=== PATIENT | male | born 1980 | race Caucasian/White ===

== ENCOUNTER 2020-06-13 14:02 | Outpatient (REF) | payer OTHER, SELFPAY ==
--- NOTE | 2020-06-13 14:06 | XR_ITS ---
EXAMINATION: XR RIBS, RIGHT CLINICAL INFORMATION: Pleurodynia COMPARISON: Chest x-ray of September 02, 2019 TECHNIQUE: PA chest and three-view right ribs FINDINGS: There is no evidence of acute parenchymal disease, pneumothorax, or pleural effusion. Heart normal size. No evidence of pulmonary edema. Views of the right ribs do not demonstrate any abnormal destructive bony lesion. No acute displaced rib fracture identified. No pleural thickening seen. XR/XR ribs RT min 3V w CXR1V IMPRESSION: No acute parenchymal disease. No destructive bony lesion or displaced fracture of the right ribs.
== END 2020-06-13 14:03 | disposition home or self-care (01) ==
LOC: HO.HMGCX 14:02
PROVIDERS: PCP Family Medicine; Visit Provider Hospitalist
DX: R07.81 Pleurodynia (principal)
CPT/HCPCS: 71101

== ENCOUNTER → 2021-03-03 13:37 | Outpatient (BNVA) | payer OTHER, SELFPAY | PROVIDERS: Visit Provider Internal Medicine | DX: F11.99 Opioid use, unspecified with unspecified opioid-induced disorder (principal); F17.200 Nicotine dependence, unspecified, uncomplicated; Z51.81 Encounter for therapeutic drug level monitoring | CPT/HCPCS: 80305; 99202 ==

== ENCOUNTER → 2021-03-10 15:51 | Outpatient (BNVA) | payer OTHER, SELFPAY | PROVIDERS: Visit Provider Internal Medicine | DX: F11.20 Opioid dependence, uncomplicated (principal); Z51.81 Encounter for therapeutic drug level monitoring; Z79.899 Other long term (current) drug therapy | CPT/HCPCS: 80305; 99212 ==

== ENCOUNTER → 2021-03-27 16:59 | Outpatient (BNVA) | payer OTHER, SELFPAY | PROVIDERS: Visit Provider Internal Medicine | DX: Z51.81 Encounter for therapeutic drug level monitoring (principal); F11.90 Opioid use, unspecified, uncomplicated | CPT/HCPCS: 80305; 99212 ==

== ENCOUNTER → 2021-04-24 15:49 | Outpatient (BNVA) | payer OTHER, SELFPAY | PROVIDERS: Visit Provider Internal Medicine | DX: F11.90 Opioid use, unspecified, uncomplicated (principal) | CPT/HCPCS: 80305; 99212 ==

== ENCOUNTER → 2021-05-22 15:30 | Outpatient (BNVA) | payer OTHER, SELFPAY | PROVIDERS: Visit Provider Internal Medicine | DX: F11.20 Opioid dependence, uncomplicated (principal); F17.200 Nicotine dependence, unspecified, uncomplicated; Z51.81 Encounter for therapeutic drug level monitoring; Z79.899 Other long term (current) drug therapy | CPT/HCPCS: 80305; 99212 ==

== ENCOUNTER → 2021-06-19 15:41 | Outpatient (BNVA) | payer OTHER, SELFPAY | PROVIDERS: Visit Provider Internal Medicine | DX: Z51.81 Encounter for therapeutic drug level monitoring (principal); F11.20 Opioid dependence, uncomplicated | CPT/HCPCS: 80305; 99211 ==

== ENCOUNTER → 2021-07-21 10:46 | Outpatient (BNVA) | payer OTHER, SELFPAY | PROVIDERS: Visit Provider Internal Medicine | DX: F11.20 Opioid dependence, uncomplicated (principal) | CPT/HCPCS: 80305; 99211 ==

== ENCOUNTER → 2021-08-18 12:59 | Outpatient (BNVA) | payer OTHER, SELFPAY | PROVIDERS: Visit Provider Internal Medicine | DX: F11.20 Opioid dependence, uncomplicated (principal) | CPT/HCPCS: 80305 ==

== ENCOUNTER → 2021-09-18 16:01 | Outpatient (BNVA) | payer OTHER, SELFPAY | PROVIDERS: Visit Provider Internal Medicine | DX: Z51.81 Encounter for therapeutic drug level monitoring (principal); F11.20 Opioid dependence, uncomplicated | CPT/HCPCS: 80305; 99212 ==

== ENCOUNTER → 2021-11-17 15:44 | Outpatient (BNVA) | payer OTHER, SELFPAY | PROVIDERS: Visit Provider Internal Medicine | DX: Z51.81 Encounter for therapeutic drug level monitoring (principal); F11.20 Opioid dependence, uncomplicated | CPT/HCPCS: 80305; 99212 ==

== ENCOUNTER → 2022-04-09 14:37 | Outpatient (BNVA) | payer OTHER, SELFPAY | PROVIDERS: Visit Provider Internal Medicine | DX: F11.20 Opioid dependence, uncomplicated (principal); Z51.81 Encounter for therapeutic drug level monitoring; Z79.899 Other long term (current) drug therapy | CPT/HCPCS: 99212 ==

== ENCOUNTER → 2022-06-04 15:41 | Outpatient (BNVA) | payer OTHER, SELFPAY | PROVIDERS: Visit Provider Internal Medicine | DX: F11.20 Opioid dependence, uncomplicated (principal) | CPT/HCPCS: 99212 ==

== ENCOUNTER → 2022-08-20 15:34 | Outpatient (BNVA) | payer OTHER, SELFPAY | PROVIDERS: PCP Family Medicine; Visit Provider Nurse Practitioner Psychiatric/Mental Health | DX: F11.20 Opioid dependence, uncomplicated (principal); F17.210 Nicotine dependence, cigarettes, uncomplicated; Z51.81 Encounter for therapeutic drug level monitoring; Z79.899 Other long term (current) drug therapy | CPT/HCPCS: 80305; 99212 ==

== ENCOUNTER → 2022-10-15 16:05 | Outpatient (BNVA) | payer OTHER, SELFPAY | PROVIDERS: PCP Family Medicine; Visit Provider Nurse Practitioner Psychiatric/Mental Health | DX: F11.20 Opioid dependence, uncomplicated (principal); Z72.0 Tobacco use; Z51.81 Encounter for therapeutic drug level monitoring; Z79.899 Other long term (current) drug therapy | CPT/HCPCS: 99212 ==

== ENCOUNTER 2023-02-01 15:34 | Outpatient (AMB) | payer SELFPAY ==
--- NOTE | 2023-02-01 15:35 | A.OFFVIS_ITS ---
Intake Vital Signs 02/01/23 15:43 BP 126/84 Blood Pressure Location Lt radial Position Sitting Pulse 74 Pulse Source Pulse Oximeter Pulse Oximetry (%) 98 Oxygen Delivery Method Room Air Intake Visit Reasons: MAT VISIT Intake Note: the patient presents for a mat visit Handhole Machine Operator Required: No Allergies morphine [MORPHINE] Allergy (Unknown, Verified 02/01/23 15:36) PALPITATIONS Do you need a note to return to daycare/school/sports/work: No HPI MAT VISIT HPI Details Patient presents for OUD treatment follow up Has not been seen in [facility] months Shared that he unexpectedly lost his sister in early November and as a result has been unable to miss anymore work (as 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 Has been taking suboxone consistently Strong family supports [facility] Medical History Opioid use disorder Tobacco use disorder Social History Alcohol intake: current Alcohol intake frequency: a few times a month Cigarette Packs Per Day: 1 Review of Systems Const Reports as per HPI and Reports no additional complaints Physical Exam Vital Signs: Last Vital Signs Pulse 74 02/01/23 15:43 BP 126/84 02/01/23 15:43 Pulse Ox 98 02/01/23 15:43 Oxygen Delivery Method Room Air 02/01/23 15:43 Const General: cooperative, healthy appearing, comfortable, no acute distress, well developed and alert Nutritional Appearance: well nourished Orientation/consciousness: patient oriented x3 Limitations: no limitations Neuro General: patient oriented x3 Psych Appearance: grossly normal Mental Status: mental status grossly normal Speech and movement: Normal speech and movement present Affect: normal affect Attitude: cooperative Thought process: Normal thought process present Thought content: Normal thought content present Insight: Good insight present (Psych) Judgement: Good judgement present (Psych) Results AMB 14 Panel Urine Drug Screen Urine Marijuana (THC) Positive Last Edit by Carmela Peacock CMA on 02/01/23 15:44 Urine Cocaine Negative Last Edit by Carmela Peacock CMA on 02/01/23 15:44 Urine Morphine Negative Last Edit by Carmela Peacock CMA on 02/01/23 15:44 Urine Methamphetamine Negative Last Edit by Carmela Peacock CMA on 02/01/23 15:44 Urine Amphetamine Negative Last Edit by Carmela Peacock CMA on 02/01/23 15:4 4 Urine Benzodiazepine Negative Last Edit by Carmela Peacock CMA on 02/01/23 15:44 Urine Barbiturates Negative Last Edit by Carmela Peacock CMA on 02/01/23 15: 44 Urine Methadone Negative Last Edit by Carmela Peacock CMA on 02/01/23 15:44 Urine Buprenorphine Positive Last Edit by Carmela Peacock CMA on 02/01/23 15 :44 Urine Tricyclic Antidepressant Negative Last Edit by Carmela Peacock CMA on 02/01/23 15:44 Urine MDMA Negative Last Edit by Carmela Peacock CMA on 02/01/23 15:44 Urine Oxycodone Negative Last Edit by Carmela Peacock CMA on 02/01/23 15:44 Urine Phencyclidine Negative Last Edit by Carmela Peacock CMA on 02/01/23 15 :44 Urine Propoxyphene Negative Last Edit by Carmela Peacock CMA on 02/01/23 15: 44 Results Reviewed Results Reviewed: Laboratory Last Values POC Urine Buprenorphine Positive 02/01/23 15:36 POC Urine Morphine Negative 02/01/23 15:36 POC Urine Oxycodone Negative 02/01/23 15:36 POC Urine Methadone Negative 02/01/23 15:36 POC Urine Propoxyphene Negative 02/01/23 15:36 POC Urine Barbiturates Negative 02/01/23 15:36 POC U Tricyclic Antidpr Negative 02/01/23 15:36 POC Urine PCP Negative 02/01/23 15:36 POC Ur Amphetamines Negative 02/01/23 15:36 POC Ur Methamphetamine Negative 02/01/23 15:36 POC Urine MDMA Negative 02/01/23 15:36 POC Ur Benzodiazepine Negative 02/01/23 15:36 POC Urine Cocaine Negative 02/01/23 15:36 POC Ur Marijuana (THC) Positive 02/01/23 15:36 Assessment & Plan Assessment & Plan (1) Opioid use disorder, moderate, in sustained remission: Code(s): F11.21 - Opioid dependence, in remission Plan: * Continue suboxone at current dose * follow up 8 weeks Orders: Orders AMB 14 Panel Urine Drug Screen 02/01/23 Z51.81 - Encounter for therapeutic drug level monitoring Medications: Changed From buprenorphine-naloxone 8-2 mg (Suboxone) place 1 strip/tab under (each) side of tongue 2 film sublingual DAILY 28 days 56 ea 1RF To buprenorphine-naloxone 8-2 mg (Suboxone) 2 film sublingual DAILY 30 ea 1RF Coding Level of Care Code Est Pt Level 3 (60848) Diagnoses Opioid use disorder, moderate, in sustained remission F11.21
[2023-02-01 15:43] VITALS: BP 126/84; PULSE 74; O2SAT 98
== END 2023-02-01 16:15 | disposition home or self-care (01) ==
LOC: HO.HCC 15:34
PROVIDERS: PCP Family Medicine; Visit Provider Nurse Practitioner Psychiatric/Mental Health
DX: F11.21 Opioid dependence, in remission (principal)
CPT/HCPCS: 99213

== ENCOUNTER → 2023-02-01 15:34 | Outpatient (BNVA) | payer OTHER, SELFPAY | PROVIDERS: PCP Family Medicine; Visit Provider Nurse Practitioner Psychiatric/Mental Health | DX: F11.21 Opioid dependence, in remission (principal); Z51.81 Encounter for therapeutic drug level monitoring; Z79.899 Other long term (current) drug therapy | CPT/HCPCS: 80305 ==

== ENCOUNTER 2023-06-28 15:49 | Outpatient (AMB) | payer OTHER, SELFPAY ==
[2023-06-28 15:52] VITALS: BP 140/85; PULSE 82; RESP 22; O2SAT 96
--- NOTE | 2023-06-28 15:52 | MHC.AM.SUB ---
Intake Vital Signs 06/28/23 15:52 BP 140/85 H Blood Pressure Location Lt brachial Respiration 22 H Pulse 82 Pulse Source Pulse Oximeter Pulse Oximetry (%) 96 Oxygen Delivery Method Room Air Intake Visit Reasons: MAT Visit Allergies morphine [MORPHINE] Allergy (Unknown, Verified 02/01/23 15:36) PALPITATIONS HPI MAT Visit HPI Details Patient presents for follow up Did not have insurance over the summer, so unable to be seen--however medication was still being sent to pharmacy and patient taking as prescribed [facility]. Still working FT No issues related to recovery [facility] Medical History Opioid use disorder Tobacco use disorder Social History Alcohol intake: current Alcohol intake frequency: a few times a month Cigarette Packs Per Day: 1 Review of Systems Const Reports as per HPI and Reports no additional complaints Physical Exam Vital Signs: Last Vital Signs Pulse 82 06/28/23 15:52 Resp 22 H 06/28/23 15:52 BP 140/85 H 06/28/23 15:52 Pulse Ox 96 06/28/23 15:52 Oxygen Delivery Method Room Air 06/28/23 15:52 Const General: cooperative, healthy appearing, comfortable, no acute distress, well developed and alert Nutritional Appearance: well nourished Orientation/consciousness: patient oriented x3 Limitations: no limitations Neuro General: patient oriented x3 Psych Appearance: grossly normal Mental Status: mental status grossly normal Speech and movement: Normal speech and movement present Affect: normal affect Attitude: cooperative Thought process: Normal thought process present Thought content: Normal thought content present Insight: Good insight present (Psych) Judgement: Good judgement present (Psych) Assessment & Plan Assessment & Plan (1) Opioid use disorder, moderate, in sustained remission: Code(s): F11.21 - Opioid dependence, in remission Plan: Continue suboxone at current dose follow up 8 weeks Medications: Refilled buprenorphine-naloxone 8-2 mg (Suboxone) 2 film sublingual DAILY 60 ea 1RF Coding Level of Care Code Est Pt Level 3 (70708) Diagnoses Opioid use disorder, moderate, in sustained remission F11.21
== END 2023-06-28 16:18 | disposition home or self-care (01) ==
PROVIDERS: PCP Family Medicine; Visit Provider Nurse Practitioner Psychiatric/Mental Health
DX: F11.21 Opioid dependence, in remission (principal)
CPT/HCPCS: 99213

== ENCOUNTER → 2023-06-28 15:49 | Outpatient (BNVA) | payer OTHER, SELFPAY | PROVIDERS: PCP Family Medicine; Visit Provider Nurse Practitioner Psychiatric/Mental Health ==

== ENCOUNTER 2023-08-26 11:03 | Outpatient (AMB) | payer OTHER, SELFPAY ==
--- NOTE | 2023-08-26 11:05 | A.OFFVISCC_ITS ---
Intake Vital Signs 08/26/23 11:09 BP 128/74 Blood Pressure Location Lt radial Position Sitting Pulse 85 Pulse Source Pulse Oximeter Pulse Oximetry (%) 96 Oxygen Delivery Method Room Air Intake Visit Reasons: mat visit Intake Note: the patient presents for a mat visit Educational Guidance Counselor Required: No Allergies morphine [MORPHINE] Allergy (Unknown, Verified 08/26/23 11:10) PALPITATIONS Do you need a note to return to daycare/school/sports/work: No HPI mat visit HPI Details Patient presents for MAT visit Reports he is moving into his new house within the next week Denies recovery concerns at this time, tolerating 16mg suboxone daily, denies side effects States he has previously had a CAT scan done and had abnormal findings ( white spots on lungs ) He reports when a repeat was done they had gotten worse (bigger and more of them) and now he needs to see a gear shaver set up operator States he has strong recovery supports (family) [facility] Medical History Opioid use disorder Tobacco use disorder Social History Alcohol intake: current Alcohol intake frequency: a few times a month Cigarette Packs Per Day: 1 Review of Systems Const Reports as per HPI Physical Exam Vital Signs: Last Vital Signs Pulse 85 08/26/23 11:09 BP 128/74 08/26/23 11:09 Pulse Ox 96 08/26/23 11:09 Oxygen Delivery Method Room Air 08/26/23 11:09 Const General: cooperative and no acute distress Resp Effort & Inspection: normal respiratory effort and able to speak in complete sentences Skin General skin exam: no rashes or lesions noted Psych Appearance: grossly normal Mental Status: mental status grossly normal Speech and movement: Normal speech and movement present Affect: normal affect Attitude: cooperative Assessment & Plan Assessment & Plan (1) Opioid use disorder, moderate, in sustained remission: Code(s): F11.21 - Opioid dependence, in remission Plan: -Mass pat reviewed -Continue suboxone current dose -Follow up 8 weeks Orders: Orders Comprehensive Met. Panel Today F11.21 - Opioid dependence, in remission Complete Blood Count Auto Diff Today F11.21 - Opioid dependence, in remission Medications: Refilled buprenorphine-naloxone 8-2 mg (Suboxone) 2 film sublingual DAILY 60 ea 1RF Coding Level of Care Code Est Pt Level 3 (76982) Diagnoses Opioid use disorder, moderate, in sustained remission F11.21
[2023-08-26 11:09] VITALS: BP 128/74; PULSE 85; O2SAT 96
== END 2023-08-26 11:22 | disposition home or self-care (01) ==
PROVIDERS: PCP Family Medicine; Visit Provider Nurse Practitioner Family
DX: F11.21 Opioid dependence, in remission (principal)
CPT/HCPCS: 99213

== ENCOUNTER → 2023-08-26 11:03 | Outpatient (BNVA) | payer OTHER, SELFPAY | PROVIDERS: PCP Family Medicine; Visit Provider Nurse Practitioner Family ==

== ENCOUNTER 2023-10-23 16:05 | Outpatient (AMB) | payer OTHER, SELFPAY ==
--- NOTE | 2023-10-23 16:34 | MHC.AM.SUB ---
Intake Visit Reasons: MAT Tele Allergies morphine [MORPHINE] Allergy (Unknown, Verified 08/26/23 11:10) PALPITATIONS HPI HPI MAT Tele: Details: Patient presents for telehealth appointment Reports he broke a rib 3.5 weeks ago, has felt pain has been increasing, and is awaiting a call back from his doctor at this time Denies any concerns for recovery Taking 16mg suboxone daily, tolerating well PFSH Medical History Opioid use disorder Tobacco use disorder Social History Alcohol intake: current Alcohol intake frequency: a few times a month Cigarette Packs Per Day: 1 Review of Systems Const Reports as per HPI Telehealth Telehealth Telehealth Platform: Telephone Location of provider rendering services: practice address Location of patient: address on file Patient Identification confirmed using: Name, : Yes Telehealth method: voice only Patient verbally consented to treatment: Yes Patient verbally consented to billing insurance company: Yes Patient informed of any privacy concerns related to visit: Yes Minutes spent on Phone/Video with Pt.: 10 Assessment & Plan Assessment & Plan (1) Opioid use disorder, moderate, in sustained remission: Code(s): F11.21 - Opioid dependence, in remission Category: Medical Plan: -PABLO lopez reviewed -Suboxone refill sent to pharmacy -Follow up 8 weeks telehealth Medications: Refilled buprenorphine-naloxone 8-2 mg (Suboxone) 2 film sublingual DAILY 60 ea 1RF
== END 2023-10-23 16:13 | disposition home or self-care (01) ==
PROVIDERS: PCP Family Medicine; Visit Provider Nurse Practitioner Family
DX: F11.21 Opioid dependence, in remission (principal)
CPT/HCPCS: 99212

== ENCOUNTER → 2023-10-23 16:05 | Outpatient (BNVA) | payer OTHER, SELFPAY | PROVIDERS: PCP Family Medicine; Visit Provider Nurse Practitioner Family ==

== ENCOUNTER 2023-12-18 16:14 | Outpatient (AMB) | payer OTHER, SELFPAY ==
--- NOTE | 2023-12-18 16:25 | MHC.AM.SUB ---
Intake Visit Reasons: MAT Visit Allergies morphine [MORPHINE] Allergy (Unknown, Verified 08/26/23 11:10) PALPITATIONS HPI HPI MAT Visit: Details: Patient presents for follow up Currently prescribed Suboxone 16mg daily Tolerates current dose --denies side effects Still working FT no questions or concerns at this time [facility] Medical History (Updated 12/22/23 @ 15:14 by Deborah Mauro CNP) Tobacco use disorder Opioid use disorder Social History Alcohol intake: current Alcohol intake frequency: a few times a month Cigarette Packs Per Day: 1 Review of Systems Const Reports as per HPI and Reports no additional complaints Physical Exam Const General: cooperative and no acute distress Resp Effort & Inspection: normal respiratory effort and able to speak in complete sentences Skin General skin exam: no rashes or lesions noted Psych Appearance: grossly normal Mental Status: mental status grossly normal Speech and movement: Normal speech and movement present Affect: normal affect Attitude: cooperative Assessment & Plan Assessment & Plan (1) Opioid use disorder, moderate, in sustained remission: Code(s): F11.21 - Opioid dependence, in remission Category: Medical Plan: continue suboxone at current dose follow up 8 weeks
== END 2023-12-18 16:41 | disposition home or self-care (01) ==
PROVIDERS: PCP Family Medicine; Visit Provider Nurse Practitioner Psychiatric/Mental Health
DX: F11.21 Opioid dependence, in remission (principal)
CPT/HCPCS: 99213

== ENCOUNTER → 2023-12-18 16:14 | Outpatient (BNVA) | payer OTHER, SELFPAY | PROVIDERS: PCP Family Medicine; Visit Provider Nurse Practitioner Psychiatric/Mental Health ==

== ENCOUNTER 2024-02-28 08:37 | Outpatient (AMB) | payer OTHER, SELFPAY ==
--- NOTE | 2024-02-28 08:38 | A.OFFVISCC_ITS ---
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 [employer] Medical History (Updated 12/22/23 @ 15:14 by Deborah Mauro CNP) Tobacco use disorder Opioid use disorder Social History Alcohol intake: current Alcohol intake frequency: a few times a month Cigarette Packs Per Day: 1 Review of Systems Const Reports as per HPI and Reports no additional complaints Telehealth Telehealth Telehealth Platform: Telephone Location of provider rendering services: practice address Location of patient: other Patient Identification confirmed using: Name, : Yes Telehealth method: voice only Patient verbally consented to treatment: Yes Patient verbally consented to billing insurance company: Yes Minutes spent on Phone/Video with Pt.: 15 Assessment & Plan Assessment & Plan (1) Opioid use disorder, moderate, in sustained remission: Code(s): F11.21 - Opioid dependence, in remission Category: Medical Plan: * continue suboxone at current dose * follow up 3 months * will call next month for refill
== END 2024-02-28 14:15 | disposition home or self-care (01) ==
PROVIDERS: PCP Family Medicine; Visit Provider Nurse Practitioner Psychiatric/Mental Health
DX: F11.21 Opioid dependence, in remission (principal)
CPT/HCPCS: 99213

== ENCOUNTER → 2024-02-28 08:37 | Outpatient (BNVA) | payer OTHER, SELFPAY | PROVIDERS: PCP Family Medicine; Visit Provider Nurse Practitioner Psychiatric/Mental Health ==

== ENCOUNTER 2024-05-19 11:01 | Outpatient (REF) | payer OTHER, SELFPAY ==
[2024-05-19 11:32] LABS: MANUAL DIFF FLAG NO
[2024-05-19 12:30] LABS: Basophils Absolute Auto 0.2 X10*3/uL (0.0-0.2); Basophils Percent Auto 1.1 % (0-2); Eosinophils Absolute Auto 0.2 X10*3/uL (0.0-0.4); Eosinophils Percent Auto 1.6 % (0-4); Hematocrit 43.1 % (42.0-52.0); Hemoglobin 13.9 g/dl (14.0-18.0); Imm Gran Abs Auto 0.41 X10*3/uL (0.00-0.03); Imm Gran Pct Auto 2.9 % (0.0-0.4); Lymphocytes Absolute Auto 1.9 X10*3/uL (1.2-4.9); Lymphocytes Percent Auto 13.9 % (20-40); Mean Corpuscular HGB Conc 32.3 g/dl (31.0-36.0); Mean Corpuscular Hemoglobin 27.7 pg (27.0-33.0); Mean Platelet Volume 9.7 fL (9.4-12.4); Monocytes Absolute Auto 1.5 X10*3/uL (0.1-1.2); Monocytes Percent Auto 10.7 % (2-11); Neutrophils Absolute Auto 9.7 x10*3/uL (2.0-8.3); Neutrophils Percent Auto 69.8 % (45-73); Platelet Count 382 X10*3/uL (160-400); Red Blood Count 5.01 X10*6/uL (4.60-5.80); Red Cell Distribution Width 15.6 % (11.0-16.0)
[2024-05-19 13:02] LABS: Alanine Aminotransferase 17 U/L (0-40); Albumin Level 3.7 g/dL (3.5-5.0); Anion Gap 10 (12-20); Aspartate Amino Transferase 20 U/L (5-37); Bilirubin Total 0.4 mg/dL (0.0-1.0); Blood Urea Nitrogen 13 mg/dL (9-16); Calcium 9.3 mg/dL (8.4-10.2); Carbon Dioxide 31 mmol/L (22-29); Chloride 98 mmol/L (96-108); Estimated Glomerular Filt Rate > 60; Glucose Random 108 mg/dL (60-115); Potassium 4.3 mmol/L (3.3-5.1); Sodium 135 mmol/L (135-145); Total Protein 6.4 g/dL (6.5-8.0)
[2024-05-19 13:17] LABS: Alkaline Phosphatase 121 U/L (39-117)
== END 2024-05-19 11:02 | disposition home or self-care (01) ==
LOC: HO.LAB 11:01
PROVIDERS: PCP Family Medicine; Visit Provider Nurse Practitioner Psychiatric/Mental Health
DX: F11.21 Opioid dependence, in remission (principal)
CPT/HCPCS: 36415; 80053; 85025

== ENCOUNTER 2024-05-29 08:38 | Outpatient (AMB) | payer OTHER, SELFPAY ==
--- NOTE | 2024-05-29 08:39 | A.OFFVISCC_ITS ---
Intake Visit Reasons: MAT Tele Allergies morphine [MORPHINE] Allergy (Unknown, Verified 08/26/23 11:10) PALPITATIONS HPI HPI MAT Tele: Details: Patient presents for follow up via telehealth Currently prescribed Suboxone 16mg daily No issues related to medication Reviewed bloodwork Was ill when had it drawn --reports he is currently on a prednisone taper and will be following up with provider next month Review of Systems Const Reports as per HPI Telehealth Telehealth Telehealth Platform: Telephone Location of provider rendering services: practice address Location of patient: address on file Patient Identification confirmed using: Name, : Yes Telehealth method: voice only Patient verbally consented to treatment: Yes Patient verbally consented to billing insurance company: Yes Minutes spent on Phone/Video with Pt.: 15 Assessment & Plan Assessment & Plan (1) Opioid use disorder, moderate, in sustained remission: Code(s): F11.21 - Opioid dependence, in remission Category: Medical Plan: * continue suboxone at current dose * follow up 2 months [facility] Medical History (Updated 12/22/23 @ 15:14 by Deborah Mauro CNP) Tobacco use disorder Opioid use disorder Social History Alcohol intake: current Alcohol intake frequency: a few times a month Cigarette Packs Per Day: 1
--- OUTSIDE RECORDS SUMMARY | 2024-06-03 05:47 | XMS_ITS | Continuity of Care Document ---
Author Organization [facility] Address [address] [address]- Care Team Providers Care Tag Maker Name Role Phone Magdiel MCGARRY, Zachary Pineda Primary Care Physician [phone] [id number] Date(s): 05/01/24 - 05/31/24 [facility] [address] [place] [id number] Encounter Type: Triage Allergies, Adverse Reactions, Alerts No Known Allergies Immunizations Given and Recorded Vaccine Date Status Refusal Reason tetanus/diphtheria/pertussis, acel(Tdap) 02/05/20 Recorded tetanus/diphtheria/pertussis, acel(Tdap) 1 02/03/19 Given Diphth-Tetanus Toxoids Adsorbed(oldterm) 2 10/22/06 Given 1Result Comment: [facility] [id number] 2Admin Note: vig Medications clonazePAM 0.5 mg oral tablet 1 tablet = 0.5 mg, By Mouth, 2 times a day, PRN Anxiety, # 20 tablet, 1 Refills, Maintenance, 11/23/22 3:58:00 PM EDT, [facility]/pharmacy #[id number], Partial fill upon patient request if the prescription is for aschedule II opioid drug., 188, cm, 11/21/22 16:54:00 EDT, Height, 77, kg, 12/10/20 3:25:00 EDT, DryWeight Start Date: 11/23/22 Status: Ordered Quantity: 20.0 Unit: tablet Repeat number: 2 cloNIDine 0.1 mg oral tablet 1, tablet, By Mouth, Daily at bedtime, PRN, SLEEP., # 30 tablet, Refills 0, Maintenance, NEEDED,06/11/22 12:34:00 PM EST, Route to Pharmacy Electronically, [id number], 188, cm, 04/06/22 8:01:00 EDT, Height, 77, kg, 12/10/20 3:25:00 EDT, Dry Weight Start Date: 06/11/22 Status: Ordered Quantity: 30.0 Unit: tablet Repeat number: 1 predniSONE 10 mg oral tablet See Instructions, 60 mg daily for 7 days --> 50mg daily for 7 days --> 40mg x 7 days --> 30mg x 7 days --> 20 mg x 7 days --> 10 mg x 7 days then stop., # 30 tablet, 0 Refills, Acute 04/28/25 3:34:00 PM EST, 04/20/24 3:32:00 PM EDT, [facility]/pharmacy #[id number], Partial fill upon patient request if the prescription is for a schedule II opioid drug., 186, cm, 04/13/24 15:01:00 EDT, Height, 80,kg, 10/11/23 14:54:00 EDT, Dry Weight Start Date: 04/20/24 Stop Date: 04/28/25 Status: Ordered Quantity: 30.0 Unit: tablet Repeat number: 1 Indication: Interstitial pulmonary disease, unspecified Suboxone 2 mg-0.5 mg sublingual film 1 film, Sublingual, Daily, dissolve under the tongue, 0 Refills, Maintenance, 08/19/19 12:12:00 PM EST, Film Start Date: 08/19/19 Status: Ordered Repeat number: 1 Suboxone 8 mg-2 mg Sublingual Film TAKE 2 FILMS SUBLINGUALLY DAILY Start Date: 09/17/23 Status: Ordered Repeat number: 1 Ventolin HFA 108 mcg/inh inhalation aerosol with adapter 2 puffs, Inhalation, 4 times a day, PRN for wheezing, # 18 Gm, 11 Refills, Maintenance, 11/04/23 2:32:00 PM EDT, Aerosol, [facility]/pharmacy #[id number], Partial fill upon patient request if the prescription is for a schedule II opioid drug., 186, cm, 11/04/23 14:04:00 EDT, Height, 80, kg, 10/11/23 14:54:00 EDT, Dry Weight Start Date: 11/04/23 Status: Ordered Quantity: 18.0 Unit: g Repeat number: 12 Problem List Condition Confirmation Course Effective Dates Status H ealth Status Informant Chest pain Confirmed Active History of opioid abuse Confirmed Active Personal history of colonic polyps Confirmed Active Lumbar radiculopathy Confirmed Active Meralgia paresthetica of right side Confirmed Active Multiple pulmonary nodules Confirmed Active Tubular adenoma of colon Confirmed Active Social History Social History Type Response Smoking Status 10 or more cigarette s (1/2 pack or more)/day in last 30 days; Interested in cessation: No; Patient wants NRT during admission No entered on: 11/04/23 Sex Sex Representation Male (finding) Patient Care team information Care Team Personnel Name: Magdiel MCGARRY, Zachary Pineda Position: [facility] Physician - Primary Care Member Role: PCP Address: [address] [place] [id number] Telecom: Care Team Related Persons Name: JAKOB CARVALHO Name: JAROD CARVALHO Insurance Providers Guarantor name: [facility] Health Plan Information #: 1 Payer: [facility] Member Number: NA Policy Number: NA Group Number: NA
--- OUTSIDE RECORDS SUMMARY | 2024-06-03 05:47 | XMS_ITS | Continuity of Care Document ---
Author Organization [facility] Address [address] [address]- Care Team Providers Care Candy Wrapping Machine Operator Name Role Phone Magdiel MCGARRY, Zachary Pineda Primary Care Physician [phone] [id number](s[facility] 04/20/24 - 05/20/24 [facility] [address] [place] [id number] Encounter Type: Triage Allergies, Adverse Reactions, Alerts No Known Allergies Immunizations Given and Recorded Vaccine Date Status Refusal Reason tetanus/diphtheria/pertussis, acel(Tdap) 02/05/20 Recorded tetanus/diphtheria/pertussis, acel(Tdap) 1 02/03/19 Given Diphth-Tetanus Toxoids Adsorbed(oldterm) 2 10/22/06 Given 1Result Comment: [facility] [id number] 2Admin Note: vig Medications clonazePAM 0.5 mg oral tablet 1 tablet = 0.5 mg, By Mouth, 2 times a day, PRN Anxiety, # 20 tablet, 1 Refills, Maintenance, 11/23/22 3:58:00 PM EDT, [facility]/pharmacy #[id number], Partial fill upon patient request if the [...] 12:34:00 PM EST, Route to Pharmacy Electronically, [id number], 188, cm, 04/06/22 8:01:00 EDT, Height, 77, [...] 3:34:00 PM EST, 04/20/24 3:32:00 PM EDT, [facility]/pharmacy #[id number], Partial fill upon patient request [...] Refills, Maintenance, 11/04/23 2:32:00 PM EDT, Aerosol, [facility]/pharmacy #[id number], Partial fill upon patient request [...] Personnel Name: Magdiel MCGARRY, Zachary Pineda Position: [facility] Physician - Primary Care Member Role: PCP Address: [address] [place] [id number] Telecom: Care Team Related Persons Name: JAKOB CARVALHO Name: JAROD CARVALHO Insurance Providers Guarantor name: [facility] Health Plan Information #: 1 Payer: [facility] Member Number: NA Policy Number: NA Group Number: NA
== END 2024-05-29 09:42 | disposition home or self-care (01) ==
PROVIDERS: PCP Family Medicine; Visit Provider Nurse Practitioner Psychiatric/Mental Health
DX: F11.21 Opioid dependence, in remission (principal)
CPT/HCPCS: 99214

== ENCOUNTER → 2024-05-29 08:38 | Outpatient (BNVA) | payer OTHER, SELFPAY | PROVIDERS: PCP Family Medicine; Visit Provider Nurse Practitioner Psychiatric/Mental Health | DX: F11.21 Opioid dependence, in remission (principal) ==

== ENCOUNTER 2024-07-29 08:45 | Outpatient (AMB) | payer OTHER, SELFPAY ==
--- NOTE | 2024-07-29 08:46 | MHC.AM.SUB ---
Intake Visit Reasons: MAT Tele Allergies morphine [MORPHINE] Allergy (Unknown, Verified 08/26/23 11:10) PALPITATIONS HPI HPI MAT Tele: Details: Patient presents for follow up via telehealth Currently prescribed Suboxone 8mg BID Tolerating current dose Denies any side effects No changes or concerns since last visit Spent [place] morning with his children Review of Systems Const Reports as per HPI and Reports no additional complaints Telehealth Telehealth Telehealth Platform: Telephone Location of provider rendering services: practice address Location of patient: address on file Patient Identification confirmed using: Name, : Yes Telehealth method: voice only Patient verbally consented to treatment: Yes Patient verbally consented to billing insurance company: Yes Minutes spent on Phone/Video with Pt.: 15 [facility] Medical History (Updated 12/22/23 @ 15:14 by Deborah Mauro CNP) Tobacco use disorder Opioid use disorder Social History Alcohol intake: current Alcohol intake frequency: a few times a month Cigarette Packs Per Day: 1 Assessment & Plan Assessment & Plan (1) Opioid use disorder, moderate, in sustained remission: Code(s): F11.21 - Opioid dependence, in remission Category: Medical Plan: continue suboxone at current dose follow up 3 months Medications: Refilled buprenorphine-naloxone 8-2 mg (Suboxone) 2 film sublingual DAILY 60 ea 2RF
== END 2024-07-29 13:01 | disposition home or self-care (01) ==
PROVIDERS: PCP Family Medicine; Visit Provider Nurse Practitioner Psychiatric/Mental Health
DX: F11.21 Opioid dependence, in remission (principal)
CPT/HCPCS: 98012

== ENCOUNTER 2024-09-29 07:07 | Inpatient (IN) | payer OTHER, SELFPAY ==
[2024-09-29] VITALS (7 sets, daily range): BP systolic 168–197; BP diastolic 86–117; PULSE 33–60; RESP 14–20; TEMP 36.3–37.1; O2SAT 95–99; BMI 21.4
--- NOTE | 2024-09-29 | ECG_ITS ---
Test Reason : BRADYCARDIA Blood Pressure : */* mmHG Vent. Rate : 41 BPM Atrial Rate : 41 BPM P-R Int : 136 ms QRS Dur : 102 ms QT Int : 486 ms P-R-T Axes : 84 83 81 degrees QTcB Int : 400 ms Marked sinus bradycardia Normal sinus rhythm with PAC's Abnormal ECG When compared with ECG of 29-Sep-2024 07:36, No significant change was found Referred By: Jana Sloan Electronically Signed By: Mathew Espana
--- NOTE | ~2024-09-29 | CT_ITS ---
CLINICAL HISTORY: worsening pain pancreatitis CT abdomen and pelvis with contrast Comparison: CT/MO/SR - CT GI BLEED ABD PEL WO/W IVCON - 09/29/24 07:[address]/SR - CT GI BLEED ABD PEL WO/W IVCON - 09/29/24 07:49 EDT Findings: Small opacities of the lung base. The liver is normal in size without suspicious focal hepatic lesions. No intrahepatic or extrahepatic ductal dilatation is seen. The hepatic and portal veins are patent. No calcified gallstones in the gallbladder. Spleen and adrenals are normal in appearance. Small fluid and fat stranding surrounding the pancreas. The enhancement of the pancreas is preserved. No suspicious focal lesion of the kidneys. There are renal cysts. Multiple small hypodensities of the kidneys are too small to be characterize statistically representing cyst. No hydronephrosis or calculi. The abdominal aorta demonstrates no evidence of aneurysmal dilatation or dissection. There is bowel wall thickening of the descending colon and sigmoid colon. No evidence of bowel obstruction. Appendix is normal. The pelvic organs are within normal limits. Small pelvic free fluid. No pathologic lymphadenopathy is seen. Fusion of the lower lumbar spine. IMPRESSION: Small fluid and fat stranding surrounding the pancreas concerning for acute interstitial edematous pancreatitis. No evidence of necrosis. Redemonstration of the small opacities of the lung base likely to be infectious/inflammatory. Bowel wall thickening of the descending colon and sigmoid colon. Colitis can not be excluded. Small pelvic free fluid. This document has been electronically signed by: Morgan Baraohna MD on 10/01/2024 14:57:24
--- NOTE | ~2024-09-29 | CT_ITS ---
EXAMINATION: CT ABDOMEN AND PELVIS WITHOUT AND WITH CONTRAST CLINICAL INFORMATION: COMPARISON: None available. TECHNIQUE: Multidetector volumetric imaging was performed of the abdomen and pelvis before and after the IV administration of 80 mL of Omnipaque 300 intravenous contrast. Acquisition acquired in noncontrast, arterial phase, and delayed phase. Sagittal and coronal reformatted images were obtained on the technologist's workstation. This CT examination was performed using dose optimization techniques as appropriate, variously including the following: *Automated exposure control *Adjustment of mA and/or kV according to patient size (this includes techniques or standardized protocols for targeted exams where dose is matched to indication/reason for exam; i.e. extremities or head) *Use of iterative reconstruction technique FINDINGS: LUNG BASES: There are innumerable peribronchial groundglass nodules in the lung bases, suggesting bronchopneumonia. There is associated centrilobular emphysematous change, and small airway thickening with foci of endometriosis plugging present. No effusions. LIVER, GALLBLADDER, AND BILIARY TREE: The liver is normal in size, shape, and attenuation. No focal hepatic lesion or biliary ductal dilatation is present. Focal fatty infiltration abutting the falciform ligament. The gallbladder is unremarkable with no evidence of radiopaque gallstones, gallbladder wall thickening, or obvious pericholecystic inflammatory changes. PANCREAS: Trace fat stranding surrounding the head of the pancreas, surrounding the second segment of the duodenum (series 9, image 40). Pancreas otherwise normal. SPLEEN: Unremarkable ADRENAL GLANDS: Unremarkable KIDNEYS AND URETERS: The kidneys are normal in size, shape, and attenuation. No hydronephrosis, hydroureter, or calculi seen. No perinephric stranding. BLADDER: Unremarkable GASTROINTESTINAL TRACT: Noncontrast examination demonstrates no evidence of active GI bleeding. Arterial phase acquisition demonstrates a focus of enhancement within the left inferior rectum, just cephalad to the anal verge, likely hemorrhoidal bleeding. In addition, best seen (series 13, image 112) in the distal sigmoid colon at the rectosigmoid junction, there is a peripheral focus of 4 mm contrast enhancement, with abutting thin vessel, suggestive of angiodysplasia. (Also seen series 10, image 182). In addition, there is a subtle focus of contrast blush involving the superior left lateral rectum (series 10, image 199), which does persist on delayed image without pooling. Delayed phase acquisition demonstrate resolution of the inferior rectal focus of enhancement. No significant contrast pooling evident abutting the other site. No additional regions of abnormal contrast pooling evident. The small bowel is normal in caliber and course. The stomach, and duodenum image normally. Normal appendix. ABDOMINAL WALL: No significant hernia is appreciated. LYMPH NODES: None enlarged by size criteria. VASCULAR: Mild to moderate atheromatous calcification of the aorta and iliac vessels. No aneurysm. PELVIC VISCERA: Mild prostate enlargement, with diameter of 4.7 cm. OSSEOUS STRUCTURES: Posterior segment of fusion of L5-S1 without complication. Osseous structures otherwise unremarkable. CT/CT gi bleed abd pel wo/w IVcon IMPRESSION: 1. Lung bases demonstrating innumerable tiny groundglass nodules bilaterally, with associated centrilobular emphysematous change, and small airway thickening/foci of endobronchial mucous plugging. Findings most likely represent endobronchial spread of infection and associated small airways infectious/inflammatory disease. If the patient is a smoker, consider smoking-related lung disease (respiratory bronchiolitis, RB/ILD). 2. There is a focus of arterial phase enhancement in the left inferior rectum just above the anal verge, most likely hemorrhoidal. No pooling on delayed phase. 3. There are 2 foci of arterial phase enhancement in the distal sigmoid and proximal rectum, possible angiodysplasia. No significant contrast pooling on delayed phase imaging. 4. Minimal fat stranding surrounding the head of the pancreas. Correlate for laboratory abnormalities of pancreatitis. Electronically signed by: Mike Gannon MD 09/29/2024 09:08 AM EDT
--- NOTE | 2024-09-29 07:19 | ECG_ITS ---
Test Reason : Bradycardia Blood Pressure : */* mmHG Vent. Rate : 35 BPM Atrial Rate : 35 BPM P-R Int : 128 ms QRS Dur : 104 ms QT Int : 492 ms P-R-T Axes : 34 84 80 degrees QTcB Int : 375 ms Marked sinus bradycardia Early repolarization Abnormal ECG When compared with ECG of 02-Sep-2019 06:17, Vent. rate has decreased by 41 bpm Referred By: Generic ED Physician Electronically Signed By: Mathew Espana
--- NOTE | 2024-09-29 07:33 | ECG_ITS ---
Test Reason : Bradycardia Blood Pressure : */* mmHG Vent. Rate : 35 BPM Atrial Rate : 35 BPM P-R Int : 128 ms QRS Dur : 98 ms QT Int : 484 ms P-R-T Axes : 36 83 80 degrees QTcB Int : 369 ms Marked sinus bradycardia ST elevation with differentials pericarditis vs early repolarization Abnormal ECG When compared with ECG of 29-Sep-2024 07:29, Criteria for Septal infarct are no longer Present Referred By: Devorah Yang Electronically Signed By: Mathew Espana
[2024-09-29] MEDS: Lactated Ringers 1,000 ML 999 ML IV (07:39)
[2024-09-29] MEDS: HYDROmorphone HCl 1 MG/ML SYRINGE IVPUSH ×5 (07:39→22:05)
[2024-09-29 07:40] LABS: MANUAL DIFF FLAG NO
[2024-09-29] MEDS: ondansetron HCL 4 MG/2 ML VIAL IVPUSH ×2 (07:40→15:16)
[2024-09-29 07:43] LABS: Basophils Absolute Auto 0.1 X10*3/uL (0.0-0.2); Basophils Percent Auto 0.4 % (0-2); Eosinophils Absolute Auto 0.1 X10*3/uL (0.0-0.4); Eosinophils Percent Auto 0.5 % (0-4); Hematocrit 42.8 % (42.0-52.0); Hemoglobin 14.4 g/dl (14.0-18.0); Imm Gran Abs Auto 0.11 X10*3/uL (0.00-0.03); Imm Gran Pct Auto 0.7 % (0.0-0.4); Lymphocytes Absolute Auto 1.5 X10*3/uL (1.2-4.9); Lymphocytes Percent Auto 8.9 % (20-40); Mean Corpuscular HGB Conc 33.6 g/dl (31.0-36.0); Mean Corpuscular Hemoglobin 28.5 pg (27.0-33.0); Mean Corpuscular Volume 84.6 fL (80.0-98.0); Mean Platelet Volume 9.3 fL (9.4-12.4); Monocytes Absolute Auto 1.2 X10*3/uL (0.1-1.2); Monocytes Percent Auto 7.1 % (2-11); Neutrophils Absolute Auto 13.6 x10*3/uL (2.0-8.3); Neutrophils Percent Auto 82.4 % (45-73); Platelet Count 410 X10*3/uL (160-400); Red Blood Count 5.06 X10*6/uL (4.60-5.80); Red Cell Distribution Width 15.2 % (11.0-16.0); White Blood Count 16.5 X10*3/uL (4.8-10.8)
--- NOTE | 2024-09-29 07:54 | ED.GIBLEED ---
HPI - GI Bleed General Chief complaint: GI Bleed Stated complaint: blood in stool, rupture feeling 9/10 pain Time Seen by Provider: 09/29/24 07:24 Source: patient, EMS and old records reviewed Mode of arrival: EMS Limitations: no limitations History of Present Illness ED Provider: GERSON GONZALES Narrative: 44 yo male with PMH of opiate use disorder stable on suboxone no IVDA or cocaine use, prior colonoscopy in 2019 but unclear where/when/why per his reports. He tells me on Saturday he started to notice abdominal pain and brb pr on Saturday - it was much worse this weekend and he had numerous episodes. This morning it was straight blood - he is not on thinners or aspirin. He then felt in his epigastric area severe pain and a pop. He has had prior hernia surgeries. He has not had any UGIB symptoms or vomiting blood. He feels hot and sweaty. He has been on amoxicillin recently for dental infection unclear how many days MD complaint: gross hematochezia Onset (ago): day(s) (4) Pain Consistency: constant Severity: severe Relieving factors: movement Exacerbating factors: none Context: history of GI bleed Associated symptoms: abdominal pain, nausea, loss of appetite and malaise Treatments Prior to Arrival: none Related Data Previous Rx's ?Medication ?Instructions ?Recorded buprenorphine 8 mg-naloxone 2 mg 2 film sublingual DAILY #60 ea 07/29/24 sublingual film (Suboxone) Allergies Allergy/AdvReac Type Severity Reaction Status Date / Time morphine [MORPHINE] Allergy Unknown PALPITATION Verified 09/29/24 07:28 S Review of Systems Review of Systems: Constitutional : No Weight loss, No Fever, pos Chills ENT/Mouth : No sore throat, No Rhinorrhea Eyes: No Swelling, No Redness Cardiovascular : No Chest Pain, No SOB, NoEdema Respiratory : No Cough, No Sputum, No Wheezing Gastrointestinal : Positive Nausea, no Vomiting, no Diarrhea, positive abdominal Pain, pos Hematochezia, No Melena Genitourinary : No Dysuria, No Urinary Frequency, No Hematuria, No Urgency Musculoskeletal : No joint pain, No Myalgias, No Joint Swelling Skin : No Skin Lesions, No rash Neuro : No Weakness, No Numbness, No Dizziness, No Headache All other systems reviewed and are negative. [facility] Past Medical History Attestation statement: The following information was validated with the patient. Source: old records reviewed Medical History Tobacco use disorder Opioid use disorder Social History Social History Alcohol intake: current Alcohol intake frequency: a few times a month Cigarette Packs Per Day: 1 Advance Directives: No Advance Directives Information Provided: Yes Physical Exam Vital Signs: Vital Signs: Last Vital Signs Temp 97.4 F 09/29/24 08:56 Pulse 41 L 09/29/24 08:56 Resp 20 09/29/24 08:56 BP 182/117 H 09/29/24 08:56 Pulse Ox 99 09/29/24 08:56 O2 Del Method Room Air 09/29/24 08:56 BMI result Body Mass Index 21.4 Appearance: Alert. Oriented X3. in pain mild acute distress. Eyes: Pupils equal, round and reactive to light. ENT: Pharynx normal. Neck: Normal inspection. Neck supple. CVS: bradycardic heart rate and rhythm. Pulses normal. Respiratory: No respiratory distress. Breath sounds normal. Abdomen: Severe epigastric pain + guarding, he tenses up everytime I try to palpate Rectal: Grossly bloody on exam Skin: Skin warm and dry. Normal skin color. Normal skin turgor. Extremities: No lower extremity edema. Neuro: Oriented X 3. No motor deficit. No sensory deficit. CN2-12 intact Medications Administered Discontinued Medications Generic Name Dose Route Start Last Admin Trade Name Freq PRN Reason Stop Dose Admin Hydromorphone HCl 1 mg 09/29/24 07:29 09/29/24 07:39 Hydromorphone Hcl 1 Mg/Ml Syringe IVPUSH 09/29/24 07:30 1 mg ONCE ONE Administration Protocol Hydromorphone HCl 1 mg 09/29/24 08:40 09/29/24 08:55 Hydromorphone Hcl 1 Mg/Ml Syringe IVPUSH 09/29/24 08:41 1 mg ONCE ONE Administration Protocol Lactated Ringer's 1,000 mls @ 999 mls/hr 09/29/24 07:29 09/29/24 07:39 Lr IV 09/29/24 08:29 999 mls/hr .Q1H1M ONE Administration Piperacillin Sod/Tazobactam 50 mls @ 100 mls/hr 09/29/24 07:48 09/29/24 08:55 Sod 3.375 gm/ Sodium Chloride IV 09/29/24 08:17 Infused ONCE ONE Infusion Iohexol 100 ml 09/29/24 08:32 09/29/24 08:32 Iohexol 350 Mg/Ml 100 Ml Infus..Btl IV 09/29/24 08:33 80 ml ONCE ONE Administration Ondansetron HCl 4 mg 09/29/24 07:29 09/29/24 07:40 Ondansetron Hcl 4 Mg/2 Ml Vial IVPUSH 09/29/24 07:30 4 mg ONCE ONE Administration Medical Decision Making Medical Decision Making [facility] Narrative: 44 yo male with PMH of opiate use disorder stable on suboxone no IVDA here with c/o severe abdominal pain and rectal bleeding at this time he is not a very good historian possibly due to pain. He has been on amoxicillin for tooth infection but unclear how long. He denies travel, sick contacts. At this time given degree of pain I have ordered, labs, cultures, IVF and IV dilaudid for pain, empiric zosyn ordered as well. He denies IVDA/cocaine use. He has never had pain like this before. He has had hernia procedure in past. Possible colitis, perforation, obstruction, GI bleed Differential Diagnosis Differential Diagnoses: The differential diagnosis associated with the presentation includes GI bleed, colitis, perforation, obstruction Admission/Observation Consideration of admission/observation: Escalation of care including admission/observation considered will admit for further work up for pain control and monitoring of bleeding Consult Healthcare Provider Management of the patient was discussed with: Hospitalist (will admit) and Design Verification Engineer (Dr. Juan M hills ) Lab Data [facility] Lab Attestation statement: I reviewed the patient's lab results. 09/29/24 07:32 09/29/24 07:32 Labs: Lab Results 09/29/24 09/29/24 Range/Units 07:32 08:09 WBC 16.5 H (4.8-10.8) X10*3/uL RBC 5.06 (4.60-5.80) X10*6/uL Hgb 14.4 (14.0-18.0) g/dl Hct 42.8 (42.0-52.0) % MCV 84.6 (80.0-98.0) fL MCH 28.5 (27.0-33.0) pg MCHC 33.6 (31.0-36.0) g/dl RDW 15.2 (11.0-16.0) % Plt Count 410 H (160-400) X10*3/uL MPV 9.3 L (9.4-12.4) fL Immature Gran % (Auto) 0.7 H (0.0-0.4) % Neut % (Auto) 82.4 H (45-73) % Lymph % (Auto) 8.9 L (20-40) % Collin % (Auto) 7.1 (2-11) % Eos % (Auto) 0.5 (0-4) % Baso % (Auto) 0.4 (0-2) % Lymph # (Auto) 1.5 (1.2-4.9) X10*3/uL [place]lin # (Auto) 1.2 (0.1-1.2) X10*3/uL Eos # (Auto) 0.1 (0.0-0.4) X10*3/uL Baso # (Auto) 0.1 (0.0-0.2) X10*3/uL Abs Immat Gran (auto) 0.11 H (0.00-0.03) X10*3/uL Absolute Neuts (auto) 13.6 H (2.0-8.3) x10*3/uL Absolute Nucleated RBC 0.000 (0.0-0.012) X10*3/uL Nucleated RBC % (auto) 0.0 (0.0-0.2) /100WBC Sodium 142 (135-145) mmol/L Potassium 3.6 (3.3-5.1) mmol/L Chloride 107 (96-108) mmol/L Carbon Dioxide 23 (22-29) mmol/L Anion Gap 16 (12-20) BUN 8 L (9-16) mg/dL Creatinine 0.71 (0.5-1.4) mg/dL Estim Creat Clear Calc 138.0 Estimated GFR > 60 Random Glucose 138 H (60-115) mg/dL Lactic Acid 0.9 (0.5-2.0) mmol/L Calcium 9.4 (8.4-10.2) mg/dL Total Bilirubin 0.4 (0.0-1.0) mg/dL AST 23 (5-37) U/L ALT 17 (0-40) U/L Alkaline Phosphatase 126 H (39-117) U/L Troponin I High Sens < 2.7 (<3.5-35.0) ng/L Total Protein 7.0 (6.5-8.0) g/dL Albumin 3.7 (3.5-5.0) g/dL Lipase 323 H (8-78) U/L Blood Type A Positive Antibody Screen NEGATIVE Independent Interpretation I performed an independent interpretation of an: EKG and CT Scan (pancreatitis) Interpretation: Rate: 35 Rhythm: sinus nik [place]: normal Normal P waves. Normal TYRELL. Normal QRS complex. ST T wave : early repolarization qTC: 369 prior studies: no sig change from 2014 The study has been interpreted contemporaneously by me. . EKG #2. Rate: 35 Rhythm: sinus nik [place]: normal Normal P waves. Normal TYRELL. Normal QRS complex. ST T wave : early repolarization, no STEMI qTC: 375 prior studies: no sig change from 2014 The study has been interpreted contemporaneously by me. EKGs reviewed by Dr. Espana as well felt to be early repolarization Radiology Impression Discussion of test interpretation with radiology: I have reviewed the radiologist's reading. Independent Historian Clinical information obtained from an independent historian. History obtained from or confirmed by: Parent and EMS External Record Review External record reviewed: Outpatient record Critical Care Time Critical Care Time Critical Care Time: Yes Total Critical Care Time: 60 Attestation: Time is exclusive of separately billable procedures. Time includes: direct patient care, patient reassessment, coordination of patient care, interpretation of data (laboratory data, pulse oximetry, arterial CT scans), review of patient's medical records, medical consultation and documentation of patient care. Procedures excluded from critical care time: central intravenous line placement and electrocardiography. Repeat IV dilaudid with improvement in pain. Discharge Plan Discharge Clinical Impression: Lower gastrointestinal hemorrhage Pancreatitis Qualifiers: Chronicity: acute Pancreatitis type: unspecified pancreatitis type Acute pancreatitis complication: no infection or necrosis Qualified Code(s): K85.90 - Acute pancreatitis without necrosis or infection, unspecified Patient Disposition: Admitted As Inpatient Prescriptions: No Action buprenorphine-naloxone [Suboxone] 8-2 mg film 2 film sublingual DAILY Qty: 60 2RF Print Language: Slovenian
[2024-09-29] MEDS: Piperacillin Sodium/Tazobactam 3.375 GM in 0.9 % Sodium Chloride 50 ML IV (08:28)
[2024-09-29] MEDS: iohexoL 350 MG/ML 100 ML INFUS..BTL IV (08:32)
[2024-09-29 08:34] LABS: Lactic Acid 0.9 mmol/L (0.5-2.0)
[2024-09-29 08:35] LABS: Alanine Aminotransferase 17 U/L (0-40); Albumin Level 3.7 g/dL (3.5-5.0); Alkaline Phosphatase 126 U/L (39-117); Anion Gap 16 (12-20); Aspartate Amino Transferase 23 U/L (5-37); Bilirubin Total 0.4 mg/dL (0.0-1.0); Blood Urea Nitrogen 8 mg/dL (9-16); Calcium 9.4 mg/dL (8.4-10.2); Carbon Dioxide 23 mmol/L (22-29); Chloride 107 mmol/L (96-108); Estimated Glomerular Filt Rate > 60; Glucose Random 138 mg/dL (60-115); Lipase 323 U/L (8-78); Potassium 3.6 mmol/L (3.3-5.1); Sodium 142 mmol/L (135-145); Troponin-I High Sensitivity < 2.7 ng/L (<3.5-35.0)
--- NOTE | 2024-09-29 09:02 | PC.NURSE ---
patient presented to the ED with rectal bleeding x3 days, patient states he awoke at 0300 with a rupture feeling in his abdomen. patient states he then started having 9/10 pain. patient presented bradycardic, diaphoretic. patient is alert and oriented x4. additional #18 IV placed with labs drawn and sent.
[2024-09-29] MEDS: LORazepam 2 MG/ML VIAL 1 MG IVPUSH (09:30)
[2024-09-29 09:55] LABS: Ethanol < 10 mg/dL; Lactate Dehydrogenase 161 U/L (118-273); Triglycerides 118 mg/dL (<150)
--- NOTE | 2024-09-29 10:31 | PHA.MEDREC ---
Pharmacy Consult ? Medication Reconciliation Pharmacy has completed the medication reconciliation, spoke to patient who stated he has stopped taking all of them .
--- NOTE | 2024-09-29 10:57 | P.HPHOSP_ITS ---
History of Present Illness Date of Service: 09/29/24 Attending physician on admission: Rama Vicente Chief Complaint: abd pain, rectal bleeding 44-year-old male with history of opioid use disorder stable on Suboxone, lumbar radiculopathy with history of lumbar fusion, history of meralgia paresthetica, multiple pulmonary nodules, tubular adenoma of colon with history of rectal bleeding who currently smokes 1 pack of cigarettes on a daily basis and was working to quit presented to the ED earlier this morning accompanied by his mother and father due to rectal bleeding and abdominal pain ongoing for 4 days. He states that initially he was having stool with bright red blood, both normal stool and diarrhea, but this morning had large volume bright red blood in the absence of stool. He has also been experiencing 9/10 epigastric pain with associated nausea and vomiting which started in the last several days. He has also been experiencing anorexia for the last 2 months and has unintentionally lost about 20 lb. He feels this is related to dental infections and was recently seen by his dentist on 09/22 and prescribed a 7 day course of Augmentin which he completed. He does tell me that from Saturday to Saturday, he was on a fishing trip with his friends and consumed significant amounts of alcohol > 10 drinks per day. He denies any regular use though his dad does state that he may be downplaying his alcohol consumption. He denies any ongoing illicit drug abuse and denies any history of IV drug abuse. He denies any history of pancreatitis. He denies any personal or family history of colon cancer. No family or personal history of IBD. He is also reporting chills, anxiety, agitation, nausea, vomiting. No fevers, rigors, melena, hematochezia, dysuria, hematuria, shortness of breath, wheezing, palpitations, lightheadedness, chest pain. Not on blood thinners. In the ED, he has been markedly bradycardic with heart rates 30s-40s and hypertensive to 192/94. He denies any history of hypertension. There is a leukocytosis of 16.5. No anemia with H/H14.4/42.8% though do suspect some degree of hemoconcentration. Hepatic function within normal limits except for alk phos 126. LDH 161. Troponin undetectable. Lipase 323. Ethyl alcohol level undetectable. CT abdomen pelvis shows evidence of innumerable tiny ground-glass nodules bilaterally with associated centrilobular emphysematous change and small airway thickening/foci of endobronchial mucous plugging suggestive of endobronchial spread of infection associated small airways infectious/inflammatory disease consideration of smoking-related lung disease advised. There is probable hemorrhoid in the left inferior rectum just above the anal verge but no pooling or delayed phase bleeding. There also 2 foci of arterial phase enhancement in the distal sigmoid and proximal rectum suggestive of possible angiodysplasia. There is also minimal fat stranding surrounding the head of the pancreas. EKG shows marked bradycardia, rate 35, early repol, no AV kevin blocks In the ED has received 1 bolus of lactated Ringer's, lorazepam, a total of 2 mg hydromorphone, Zosyn, and ondansetron. Hx colonocopy [facility] 2019- Colonoscopy, flexible; with removal of tumor(s), polyp(s), or other lesion(s) by snare technique: 01/20/19 Review of Systems 2 Review of Systems: Yes all other systems are reviewed and are negative [facility] Medical History (Updated 09/29/24 @ 11:46 by PRERNA Campbell) Multiple pulmonary nodules Alcohol use disorder Tubular adenoma Tobacco use disorder Opioid use disorder Surgical History (Updated 09/29/24 @ 11:15 by PRERNA Campbell) History of lumbar fusion Social History Alcohol intake: current Alcohol intake frequency: a few times a month Cigarette Packs Per Day: 1 Advance Directives: No Advance Directives Information Provided: Yes Meds Allergies Allergy/AdvReac Type Severity Reaction Status Date / Time morphine [MORPHINE] Allergy Unknown PALPITATION Verified 09/29/24 07:28 S Active Medications: Current Medications Acetaminophen (Acetaminophen 325 Mg Tablet) 650 mg PO Q6H PRN PRN Reason: Pain, Mild 1-3,fever,headache Calcium Carbonate (Calcium Carbonate 750 Mg Tab.Chew) 750 mg PO Q4H PRN PRN Reason: Heartburn Hydromorphone HCl (Hydromorphone Hcl 1 Mg/Ml Syringe) 1 mg IVPUSH Q4H PRN; Protocol PRN Reason: Pain, Severe (Pain Scale 7-10) Lactated Ringer's (Lr) 1,000 mls @ 150 mls/hr IVCONT .Q6H40M [facility] Magnesium Hydroxide (Milk Of Magnesia 30 Ml Oral.Susp) 30 ml PO DAILY PRN PRN Reason: Constipation Melatonin (Melatonin 3 Mg Tablet) 6 mg PO BEDTIME PRN PRN Reason: Insomnia Morphine Sulfate (Morphine Sulfate 4 Mg/Ml Cartridge) 4 mg IVPUSH Q4H PRN; Protocol PRN Reason: Pain, Severe (Pain Scale 7-10) Omeprazole (Omeprazole 40 Mg Capsule.Dr) 40 mg PO DAILY [facility] Ondansetron HCl (Ondansetron Hcl 4 Mg/2 Ml Vial) 4 mg IVPUSH Q8H PRN PRN Reason: Nausea and Vomiting Sodium Chloride (0.9 % Sodium Chloride Flush 3 Ml Syringe) 3 ml IVFLUSH QSHIFT [facility] Home Medications ?Medication ?Instructions ?Recorded ?Confirmed ?Last Taken ?Type buprenorphine 8 mg-naloxone 2 mg 2 film sublingual DAILY 09/29/24 09/29/24 Unknown History sublingual film omeprazole 40 mg capsule,delayed 40 mg PO DAILY@0630 09/29/24 09/29/24 Unknown History release Physical Exam 2 Vital Signs and Narrative: Vital Signs: Last Vital Signs Temp 97.4 F 09/29/24 08:56 Pulse 33 L 09/29/24 10:05 Resp 16 09/29/24 10:05 BP 192/94 H 09/29/24 10:05 Pulse Ox 99 09/29/24 08:56 O2 Del Method Room Air 09/29/24 08:56 BMI result Body Mass Index 21.4 Constitutional - Awake and Alert, No apparent distress Eyes - PERRLA, EOMI Cardiovascular - S1S2, RRR, No edema Respiratory - Normal lung expansion, Normal respiratory effort, No respiratory distress, CTA bilaterally Gastrointestinal - voluntary guarding. ND; +BS; No rebound Extremities - no calf tenderness bilaterally, no swelling Musculoskeletal - Normal inspection, normal ROM Skin - Warm/slightly clammy Neurological - Alert & oriented x3, CN II-XII in tact Psychological - anxious/aggitated, very restless Results Labs 09/29/24 11:21 09/29/24 07:32 Labs: Laboratory Results - last 24 hr 09/29/24 09/29/24 07:32 08:09 MCV 84.6 MCH 28.5 MCHC 33.6 RDW 15.2 Plt Count 410 H MPV 9.3 L Immature Gran % (Auto) 0.7 H Neut % (Auto) 82.4 H Lymph % (Auto) 8.9 L Lake % (Auto) 7.1 Eos % (Auto) 0.5 Baso % (Auto) 0.4 Lymph # (Auto) 1.5 [place] # (Auto) 1.2 Eos # (Auto) 0.1 Baso # (Auto) 0.1 Abs Immat Gran (auto) 0.11 H Absolute Neuts (auto) 13.6 H Absolute Nucleated RBC 0.000 Nucleated RBC % (auto) 0.0 Anion Gap 16 Estim Creat Clear Calc 138.0 Estimated GFR > 60 Random Glucose 138 H Lactic Acid 0.9 Calcium 9.4 Total Bilirubin 0.4 AST 23 ALT 17 Alkaline Phosphatase 126 H Lactate Dehydrogenase 161 Total Protein 7.0 Albumin 3.7 Triglycerides 118 Lipase 323 H Ethyl Alcohol < 10 Blood Type A Positive Antibody Screen NEGATIVE Imaging Radiologist's Impressions: Impressions Abdomen/Pelvis CT 09/29/24 07:51 IMPRESSION: 1. Lung bases demonstrating innumerable tiny groundglass nodules bilaterally, with associated centrilobular emphysematous change, and small airway thickening/foci of endobronchial mucous plugging. Findings most likely represent endobronchial spread of infection and associated small airways infectious/inflammatory disease. If the patient is a smoker, consider smoking-related lung disease (respiratory bronchiolitis, RB/ILD). 2. There is a focus of arterial phase enhancement in the left inferior rectum just above the anal verge, most likely hemorrhoidal. No pooling on delayed phase. 3. There are 2 foci of arterial phase enhancement in the distal sigmoid and proximal rectum, possible angiodysplasia. No significant contrast pooling on delayed phase imaging. 4. Minimal fat stranding surrounding the head of the pancreas. Correlate for laboratory abnormalities of pancreatitis. Electronically signed by: Mike Gannon MD 09/29/2024 09:08 AM EDT Assessment and Plan (1) Alcohol use disorder: Status: Acute (2) Pancreatitis: Qualifiers: Acute pancreatitis complication: no infection or necrosis Chronicity: a cute Pancreatitis type: unspecified pancreatitis type Qualified Code(s): K 85.90 - Acute pancreatitis without necrosis or infection, unspecified Status: Acute (3) Lower gastrointestinal hemorrhage: Status: Acute (4) Bradycardia: Status: Acute Plan 44-year-old male with history of opioid use disorder stable on Suboxone, lumbar radiculopathy with history of lumbar fusion, history of meralgia paresthetica, multiple pulmonary nodules, tubular adenoma of colon with history of rectal bleeding who currently smokes 1 pack of cigarettes on a daily basis and was working to quit admitted to the med/tele for further management of acute alcoholic pancreatitis with bright red blood per rectum, and marked bradycardia. Acute alcoholic pancreatitis/alcohol use disorder Reports consuming >10 alcoholic beverages daily over the last 3 days. Denies regularly use, however father states otherwise Lipase 323, CT abdomen/pelvis shows evidence of fat stranding around the head of the pancreas Triglycerides within normal limits. No evidence of biliary obstruction Aggressive IV fluid resuscitation with LR at 150 mL/hr Antiemetics p.r.n. Analgesia p.r.n. with IV Dilaudid and oxycodone using pain scale NPO for now except clear liquids/ice chips Monitor on CIWA, if evidence of withdrawal initiate phenobarbital per protocol Folic acid, thiamine Addiction medicine consult Trend lipase Bright red blood per rectum with intermittent diarrhea No anemia however suspect some hemoconcentration. Repeat CBC now Type and screen ordered. Transfuse to keep hbg >8.0 Gastroenterology consult Colonoscopy 2018 [facility] revealed tubular adenoma, denies further follow up with GI. Seen by PCP yesterday who also ordered colonoscopy GI panel and cdiff pcr (recent augmentin use) Follow CBC Unintentional WL -20 lbs last 2 months feels this is r/t dental infection which has been treated (completed course augmentin) Marked sinus bradycardia- stable/asymptomatic HR 30s-40s Likely vagal in response to pain ?r/t suboxone- less likely per Addiction medicine and has been taking this for many months EKG shows early repol, but not significant AV kevin blocks and marked sinus nik, rate 35 Monitor on tele Cardiology consult Acute leukocytosis Suspect reactive due to above as well as hemoconcentration No sepsis Hold on antibiotic therapy at this time as there is no obvious infection Continue IV fluid resuscitation Hypertensive urgency in setting of pain/withdrawal Treat withdrawal/manage pain, prn IV antihypertensives SBP>180 Monitor on tele OUD addiction med consult, continue buprenorphine Cigarette smoking Motivated to quit. Cessation encouraged Declines replacement therapy DVT proph- SCPs given rectal bleeding Full code Pt requires inpt stay at least 2 midnights for management of acute alcohol withdrawal in patient at risk for withdrawal which will require aggressive IVF resuscitation, IV pain management as well as close monitoring on CIWA for suspected impending withdrawal with possible need for phenobarbital. He also requires expert consultation due to rectal bleeding as well as marked bradycardia both of which will require expert consultation and close cardiac monitoring. Quality Stroke Does the patient have a stroke diagnosis?: No VTE Prior VTE?: No VTE Risk Level:: Medical - moderate - high VTE Device Contraindication: N/A - Device Ordered VTE Drug Contraindication: Treatment Not Indicated
--- NOTE | 2024-09-29 11:04 | PM.GICN ---
History of Present Illness Data of Consult Service Date: 09/29/24 Requesting physician: Jana Sloan Primary Care Provider: Zachary Veloz MD HPI Reason for consult: AIP, LGIB This is a 44 y.o M with PMH of opiate use disorder on suboxone, etOH use disorder, tobacco use disorder, back surgery, hx of colon polyps who presented to the hospital for sudden onset of abd pain that woke him up from sleep last night. Pt reports hx of binge drinking over weekend when he was on a fishing trip with his friends. Thinks had at least 12-13 beers with a few shots of hard liquor. Was nauseous saturday without any abd pain and then overnight at 2 am was woken up by severe sharp mid epigastric pain that is radiating to his back. Assoc with nausea, loss of appetite, bloating. In the background he has also been having BRBPR since Saturday. Occurs after each BM. BM itself is brown and formed. No clots. Had a colo at [facility] [place] [facility] 2019 with tubular adenoma removed. As outlined above has extensive etOH and smoking hx. No NSAID use reported. In the ER noted to be hypertensive with fluctuating bradycardia. Labs with leukocytosis and hemoconcentration. Lipase 323. PMFSH Past Medical History Medical History (Updated 09/29/24 @ 11:46 by PRERNA Campbell) Multiple pulmonary nodules Alcohol use disorder Tubular adenoma Tobacco use disorder Opioid use disorder Surgical History Surgical History (Updated 09/29/24 @ 11:15 by PRERNA Campbell) History of lumbar fusion Social History Social History Alcohol intake: current Alcohol intake frequency: a few times a month Cigarette Packs Per Day: 1 Advance Directives: No Advance Directives Information Provided: Yes Meds Allergies Allergy/AdvReac Type Severity Reaction Status Date / Time morphine [MORPHINE] Allergy Unknown PALPITATION Verified 09/29/24 07:28 S Active Medications: Current Medications Acetaminophen (Acetaminophen 325 Mg Tablet) 650 mg PO Q6H PRN PRN Reason: Pain, Mild 1-3,fever,headache Calcium Carbonate (Calcium Carbonate 750 Mg Tab.Chew) 750 mg PO Q4H PRN PRN Reason: Heartburn Hydromorphone HCl (Hydromorphone Hcl 1 Mg/Ml Syringe) 1 mg IVPUSH Q4H PRN; Protocol PRN Reason: Pain, Severe (Pain Scale 7-10) Lactated Ringer's (Lr) 1,000 mls @ 150 mls/hr IVCONT .Q6H40M [facility] Magnesium Hydroxide (Milk Of Magnesia 30 Ml Oral.Susp) 30 ml PO DAILY PRN PRN Reason: Constipation Melatonin (Melatonin 3 Mg Tablet) 6 mg PO BEDTIME PRN PRN Reason: Insomnia Morphine Sulfate (Morphine Sulfate 4 Mg/Ml Cartridge) 4 mg IVPUSH Q4H PRN; Protocol PRN Reason: Pain, Severe (Pain Scale 7-10) Omeprazole (Omeprazole 40 Mg Capsule.Dr) 40 mg PO DAILY@0630 [facility] Ondansetron HCl (Ondansetron Hcl 4 Mg/2 Ml Vial) 4 mg IVPUSH Q8H PRN PRN Reason: Nausea and Vomiting Sodium Chloride (0.9 % Sodium Chloride Flush 3 Ml Syringe) 3 ml IVFLUSH QSHIFT [facility] Home Medications ?Medication ?Instructions ?Recorded ?Confirmed ?Last Taken ?Type buprenorphine 8 mg-naloxone 2 mg 2 film sublingual DAILY 09/29/24 09/29/24 Unknown History sublingual film omeprazole 40 mg capsule,delayed 40 mg PO DAILY@0630 09/29/24 09/29/24 Unknown History release Physical Exam Vital Signs: Vital Signs: Last Vital Signs Temp 97.4 F 09/29/24 08:56 Pulse 33 L 09/29/24 10:05 Resp 16 09/29/24 10:05 BP 192/94 H 09/29/24 10:05 Pulse Ox 99 09/29/24 08:56 O2 Del Method Room Air 09/29/24 08:56 BMI result Body Mass Index 21.4 No apparent distress Nonicteric Abdomen soft, exquisitely tender with guarding No AURELIANO Alert and oriented x3, no focal deficits Results Labs 09/29/24 11:21 09/29/24 07:32 Labs: Short CBC 09/29/24 Range/Units 07:32 WBC 16.5 H (4.8-10.8) X10*3/uL Hgb 14.4 (14.0-18.0) g/dl Hct 42.8 (42.0-52.0) % Plt Count 410 H (160-400) X10*3/uL BMP 09/29/24 07:32 Sodium 142 Potassium 3.6 Chloride 107 Carbon Dioxide 23 BUN 8 L Creatinine 0.71 Calcium 9.4 Liver Function 09/29/24 Range/Units 07:32 Total Bilirubin 0.4 (0.0-1.0) mg/dL AST 23 (5-37) U/L ALT 17 (0-40) U/L Alkaline Phosphatase 126 H (39-117) U/L Albumin 3.7 (3.5-5.0) g/dL Imaging CT scan - abdomen: Radiologist's impression: 1. Lung bases demonstrating innumerable tiny groundglass nodules bilaterally, with associated centrilobular emphysematous change, and small airway thickening/foci of endobronchial mucous plugging. Findings most likely represent endobronchial spread of infection and associated small airways infectious/inflammatory disease. If the patient is a smoker, consider smoking-related lung disease (respiratory bronchiolitis, RB/ILD). 2. There is a focus of arterial phase enhancement in the left inferior rectum just above the anal verge, most likely hemorrhoidal. No pooling on delayed phase. 3. There are 2 foci of arterial phase enhancement in the distal sigmoid and proximal rectum, possible angiodysplasia. No significant contrast pooling on delayed phase imaging. 4. Minimal fat stranding surrounding the head of the pancreas. Correlate for laboratory abnormalities of pancreatitis. Assessment and Plan (1) Alcohol use disorder: Status: Acute (2) Pancreatitis: Qualifiers: Acute pancreatitis complication: no infection or necrosis Chronicity: acute Pancreatitis type: unspecified pancreatitis type Qualified Code(s): K85.90 - Acute pancreatitis without necrosis or infection, unspecified Status: Acute (3) Lower gastrointestinal hemorrhage: Status: Acute (4) Tobacco use disorder: Status: Acute Plan 1. AIP: Likely 2/2 etOH binge episode. Pt also with background of extensive etOH use. Labs with hemoconcentration. Primarily head of pancreas involvement. Plan: - IVF 1L bolus now and then at least 150cc/h for first 24h of admission - Ok to keep NPO for now. Trial clears tmrw or earlier if pt endorses appetite - POC QID for glucose monitoring with AIP - Serial abd exams - low threshold for repeat contrasted CT in 48-72h if pt without significant clinical improvement - Daily LFTs - consider US Abd if they spike - Monitor for etOH withdrawal 2. LGIB Based on description and location on CT bleed protocol likely 2/2 hemorrhoids vs proctitis vs SURS. Ideally should have full colo given background sx of unintentional weight loss and change in bowel habits however pt will not be able to tolerate 4L PEG prep + hydration is of paramount importance within first 24-48h of onset of pancreatitis. Flex sig offered while inpatient which the pt is not too thrilled about either. Would like to hold off if has to get a full colo in near future anyway but open to discussing this further with his family (present at bedside). Plan: - Flex sig offered as above - tentativeyl booked for tmrw PM - If agrees to proceed, will need an enema at 10 am and then again 12 pm. - Pls also keep NPO in that case Thank you for allowing me to participate in his care. Please do not hesitate to reach out for questions or concerns. Procedures Date of Service Date of Service: 09/29/24
[2024-09-29 11:28] LABS: Basophils Absolute Auto 0.1 X10*3/uL (0.0-0.2); Basophils Percent Auto 0.3 % (0-2); Hematocrit 41.6 % (42.0-52.0); Hemoglobin 13.5 g/dl (14.0-18.0); Imm Gran Abs Auto 0.12 X10*3/uL (0.00-0.03); Imm Gran Pct Auto 0.8 % (0.0-0.4); Lymphocytes Absolute Auto 0.6 X10*3/uL (1.2-4.9); MANUAL DIFF FLAG SCAN; Mean Corpuscular HGB Conc 32.5 g/dl (31.0-36.0); Mean Corpuscular Hemoglobin 28.1 pg (27.0-33.0); Mean Corpuscular Volume 86.7 fL (80.0-98.0); Mean Platelet Volume 9.4 fL (9.4-12.4); Monocytes Absolute Auto 0.7 X10*3/uL (0.1-1.2); Monocytes Percent Auto 4.2 % (2-11); Neutrophils Absolute Auto 14.1 x10*3/uL (2.0-8.3); Neutrophils Percent Auto 90.7 % (45-73); Platelet Count 373 X10*3/uL (160-400); Red Cell Distribution Width 15.1 % (11.0-16.0); SCAN SMEAR FLAG 1; White Blood Count 15.6 X10*3/uL (4.8-10.8)
[2024-09-29] MEDS: Lactated Ringers 1,000 ML 150 ML IVCONT ×2 (11:37→18:34)
[2024-09-29 11:46] LABS: SLIDE REVIEW VERIFIED
--- NOTE | 2024-09-29 12:04 | P.CONCA_ITS ---
History of Present Illness History of Present Illness Date of Service: 09/29/24 Requesting physician: Jana Sloan Consult reason: other (Bradycardia) Chief complaint: acute alcoholic pancreatitis rectal bleeding nik Narrative: 44-year-old gentleman presenting for abdominal pain and rectal bleeding. He has been diagnosed with pancreatitis secondary to alcoholism. He has opioid use disorder and has been on Suboxone. He has been noticed to have early repolarization on the EKG and bradycardia. He is saying he has been to [facility] at times where everyone was concerned looking at his EKG because changes mimicked acute heart attack. He also reports that he was told that he had pericarditis in the past. Looking at the EKGs he has clear early repolarization changes. This is a benign finding in most patients. The bradycardia is new as per his report. He is on Suboxone which can cause bradycardia. He is also complaining of severe abdominal pain and usually that can lead to bradycardia due to vagal stimulation 2. He is completely asymptomatic and denying any dizziness his main complaint is abdominal pain. [facility] Past Medical History Medical History (Updated 09/29/24 @ 11:46 by PRERNA Campbell) Multiple pulmonary nodules Alcohol use disorder Tubular adenoma Tobacco use disorder Opioid use disorder Surgical History Surgical History (Updated 09/29/24 @ 11:15 by PRERNA Campbell) History of lumbar fusion Social History Social History Alcohol intake: current Alcohol intake frequency: a few times a month Cigarette Packs Per Day: 1 Advance Directives: No Advance Directives Information Provided: Yes Meds Allergies Allergy/AdvReac Type Severity Reaction Status Date / Time morphine [MORPHINE] Allergy Unknown PALPITATION Verified 09/29/24 07:28 S Active Medications: Current Medications Acetaminophen (Acetaminophen 325 Mg Tablet) 650 mg PO Q6H PRN PRN Reason: Pain, Mild 1-3,fever,headache Calcium Carbonate (Calcium Carbonate 750 Mg Tab.Chew) 750 mg PO Q4H PRN PRN Reason: Heartburn Hydromorphone HCl (Hydromorphone Hcl 1 Mg/Ml Syringe) 1 mg IVPUSH Q4H PRN; Protocol PRN Reason: Pain, Severe (Pain Scale 7-10) Lactated Ringer's (Lr) 1,000 mls @ 150 mls/hr IVCONT .Q6H40M [facility] Last Admin: 09/29/24 11:37 Dose: 150 mls/hr Magnesium Hydroxide (Milk Of Magnesia 30 Ml Oral.Susp) 30 ml PO DAILY PRN PRN Reason: Constipation Melatonin (Melatonin 3 Mg Tablet) 6 mg PO BEDTIME PRN PRN Reason: Insomnia Morphine Sulfate (Morphine Sulfate 4 Mg/Ml Cartridge) 4 mg IVPUSH Q4H PRN; Protocol PRN Reason: Pain, Severe (Pain Scale 7-10) Omeprazole (Omeprazole 40 Mg Capsule.Dr) 40 mg PO DAILY@0630 [facility] Ondansetron HCl (Ondansetron Hcl 4 Mg/2 Ml Vial) 4 mg IVPUSH Q8H PRN PRN Reason: Nausea and Vomiting Sodium Chloride (0.9 % Sodium Chloride Flush 3 Ml Syringe) 3 ml IVFLUSH QSHIFT [facility] Home Medications ?Medication ?Instructions ?Recorded ?Confirmed ?Last Taken ?Type buprenorphine 8 mg-naloxone 2 mg 2 film sublingual DAILY 09/29/24 09/29/24 Unknown History sublingual film omeprazole 40 mg capsule,delayed 40 mg PO DAILY@0630 09/29/24 09/29/24 Unknown History release Physical Exam 2 Vital Signs: Vital Signs: Last Vital Signs Temp 98.7 F 09/29/24 11:33 Pulse 40 L 09/29/24 11:33 Resp 14 09/29/24 11:33 BP 188/87 H 09/29/24 11:33 Pulse Ox 99 09/29/24 11:33 O2 Del Method Room Air 09/29/24 11:33 BMI result Body Mass Index 21.4 GENERAL APPEARANCE: Appears distress due to abdominal pain. NECK: no carotid bruit, no jugular venous distention. SKIN: no suspicious lesions, warm and dry. HEART: no murmurs, regular rate and rhythm. Bradycardic. LUNGS: clear to auscultation bilaterally. ABDOMEN: Epigastric tenderness. EXTREMITIES: no edema. PERIPHERAL PULSES: equal. NEUROLOGIC: No gross deficits, AAO X 3 Objective Labs and Meds 09/29/24 11:21 09/29/24 07:32 Lab results: Laboratory Results - last 24 hr 09/29/24 09/29/24 09/29/24 07:32 08:09 11:21 WBC 16.5 H 15.6 H RBC 5.06 4.80 Hgb 14.4 13.5 L Hct 42.8 41.6 L MCV 84.6 86.7 MCH 28.5 28.1 MCHC 33.6 32.5 RDW 15.2 15.1 Plt Count 410 H 373 MPV 9.3 L 9.4 Immature Gran % (Auto) 0.7 H 0.8 H Neut % (Auto) 82.4 H 90.7 H Lymph % (Auto) 8.9 L 4.0 L [place] % (Auto) 7.1 4.2 Eos % (Auto) 0.5 0.0 Baso % (Auto) 0.4 0.3 Lymph # (Auto) 1.5 0.6 L [place] # (Auto) 1.2 0.7 Eos # (Auto) 0.1 0.0 Baso # (Auto) 0.1 0.1 Abs Immat Gran (auto) 0.11 H 0.12 H Absolute Neuts (auto) 13.6 H 14.1 H Absolute Nucleated RBC 0.000 0.000 Nucleated RBC % (auto) 0.0 0.0 Smear Tech's Comments VERIFIED Sodium 142 Potassium 3.6 Chloride 107 Carbon Dioxide 23 Anion Gap 16 BUN 8 L Creatinine 0.71 Estim Creat Clear Calc 138.0 Estimated GFR > 60 Random Glucose 138 H Lactic Acid 0.9 Calcium 9.4 Total Bilirubin 0.4 AST 23 ALT 17 Alkaline Phosphatase 126 H Lactate Dehydrogenase 161 Troponin I High Sens < 2.7 Total Protein 7.0 Albumin 3.7 Triglycerides 118 Lipase 323 H Ethyl Alcohol < 10 Blood Type A Positive Antibody Screen NEGATIVE Imaging Radiologist's impression: Impressions Abdomen/Pelvis CT 09/29/24 07:51 IMPRESSION: 1. Lung bases demonstrating innumerable tiny groundglass nodules bilaterally, with associated centrilobular emphysematous change, and small airway thickening/foci of endobronchial mucous plugging. Findings most likely represent endobronchial spread of infection and associated small airways infectious/inflammatory disease. If the patient is a smoker, consider smoking-related lung disease (respiratory bronchiolitis, RB/ILD). 2. There is a focus of arterial phase enhancement in the left inferior rectum just above the anal verge, most likely hemorrhoidal. No pooling on delayed phase. 3. There are 2 foci of arterial phase enhancement in the distal sigmoid and proximal rectum, possible angiodysplasia. No significant contrast pooling on delayed phase imaging. 4. Minimal fat stranding surrounding the head of the pancreas. Correlate for laboratory abnormalities of pancreatitis. Electronically signed by: Mike Gannon MD 09/29/2024 09:08 AM EDT Assessment and Plan (1) Bradycardia: Status: Acute (2) Alcohol use disorder: Status: Acute Plan 44-year-old gentleman with background of alcohol use and opioid dependence currently on Suboxone. He is presenting with pancreatitis secondary to alcohol use. He has abdominal pain and I think that is the reason he has bradycardia currently. He is asymptomatic from bradycardia viewpoint and is in fact hypertensive currently. No conduction blocks noted on the EKG. He has changes of early repolarization which are old. Treatment is conservative. He is NPO and is receiving IV fluids. GI we will see him for further workup. Low to intermediate risk for any procedures. Thank you for allowing me to participate in the care of your patient. Please feel free to contact me if you have any questions. Procedures Date of Service Date of Service: 09/29/24
[2024-09-29] MEDS: Morphine Sulfate 4 MG/ML CARTRIDGE IVPUSH (14:08)
[2024-09-29] MEDS: Folic Acid 1 MG TABLET PO (15:16)
[2024-09-29] MEDS: Thiamine HCL 100 MG TABLET PO (15:16)
--- NOTE | 2024-09-29 15:42 | HO.ADDICT_ITS ---
History of Present Illness Date of Service: 09/29/2024 Chief Complaint: acute alcoholic pancreatitis rectal bleeding nik Reason for Consult: Bradycardia --prescribed suboxone Discussed with referring provider: Yes Sources of Information: patient interviewed and chart reviewed HPI Narrative: Patient is a 44 year old male with history of OUD, in sustained remission, medically admitted with bradycardia, acute pancreatitis. Most information obtained via chart review as patient was in significant pain and unable to participate in interview. 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 Denies drinking at this rate with regularity. Denies any substance use He reports his last suboxone dose was yesterday, 09/28/24 Bradycardia since presenting to ED, HR low 40s, BPs 180's/90 seen by cardiology and GI pain regimen in place Review of Systems Review of Systems Yes Unobtainable due to mental condition Diagnostics Vital Signs (24Hr): Vital Signs - 24 hr 09/29/24 07:16 09/29/24 08:56 09/29/24 10:05 Temperature 97.5 F 97.4 F Pulse Rate 40 L 41 L 33 L Respiratory Rate 16 20 16 Blood Pressure 170/96 H 182/117 H 192/94 H Pulse Oximetry 97 99 Oxygen Delivery Method Room Air 09/29/24 11:33 09/29/24 14:08 Temperature 98.7 F Pulse Rate 40 L Respiratory Rate 14 18 Blood Pressure 188/87 H Pulse Oximetry 99 Oxygen Delivery Method Room Air BMI result Body Mass Index 21.4 Labs 09/29/24 11:21 09/29/24 07:32 Labs: Laboratory Results - last 48 hr 09/29/24 09/29/24 09/29/24 07:32 08:09 11:21 WBC 16.5 H 15.6 H RBC 5.06 4.80 Hgb 14.4 13.5 L Hct 42.8 41.6 L MCV 84.6 86.7 MCH 28.5 28.1 MCHC 33.6 32.5 RDW 15.2 15.1 Plt Count 410 H 373 MPV 9.3 L 9.4 Immature Gran % (Auto) 0.7 H 0.8 H Neut % (Auto) 82.4 H 90.7 H Lymph % (Auto) 8.9 L 4.0 L [place] % (Auto) 7.1 4.2 Eos % (Auto) 0.5 0.0 Baso % (Auto) 0.4 0.3 Lymph # (Auto) 1.5 0.6 L [place] # (Auto) 1.2 0.7 Eos # (Auto) 0.1 0.0 Baso # (Auto) 0.1 0.1 Abs Immat Gran (auto) 0.11 H 0.12 H Absolute Neuts (auto) 13.6 H 14.1 H Absolute Nucleated RBC 0.000 0.000 Nucleated RBC % (auto) 0.0 0.0 Smear Tech's Comments VERIFIED Sodium 142 Potassium 3.6 Chloride 107 Carbon Dioxide 23 Anion Gap 16 BUN 8 L Creatinine 0.71 Estim Creat Clear Calc 138.0 Estimated GFR > 60 Random Glucose 138 H Lactic Acid 0.9 Calcium 9.4 Total Bilirubin 0.4 AST 23 ALT 17 Alkaline Phosphatase 126 H Lactate Dehydrogenase 161 Troponin I High Sens < 2.7 Total Protein 7.0 Albumin 3.7 Triglycerides 118 Lipase 323 H Ethyl Alcohol < 10 Blood Type A Positive Antibody Screen NEGATIVE Imaging Radiology Impressions: ITS Impressions Abdomen/Pelvis CT 09/29/24 07:51 IMPRESSION: 1. Lung bases demonstrating innumerable tiny groundglass nodules bilaterally, with associated centrilobular emphysematous change, and small airway thickening/foci of endobronchial mucous plugging. Findings most likely represent endobronchial spread of infection and associated small airways infectious/inflammatory disease. If the patient is a smoker, consider smoking-related lung disease (respiratory bronchiolitis, RB/ILD). 2. There is a focus of arterial phase enhancement in the left inferior rectum just above the anal verge, most likely hemorrhoidal. No pooling on delayed phase. 3. There are 2 foci of arterial phase enhancement in the distal sigmoid and proximal rectum, possible angiodysplasia. No significant contrast pooling on delayed phase imaging. 4. Minimal fat stranding surrounding the head of the pancreas. Correlate for laboratory abnormalities of pancreatitis. Electronically signed by: Mike Gannon MD 09/29/2024 09:08 AM EDT Mental Status Exam Mental Status Exam Level of Consciousness: Awake, Restless and Alert Mood Description: Fearful Medications Medications Current Medications Acetaminophen (Acetaminophen 325 Mg Tablet) 650 mg PO Q6H PRN PRN Reason: Pain, Mild 1-3,fever,headache Calcium Carbonate (Calcium Carbonate 750 Mg Tab.Chew) 750 mg PO Q4H PRN PRN Reason: Heartburn Folic Acid (Folic Acid 1 Mg Tablet) 1 mg PO DAILY [facility] Last Admin: 09/29/24 15:16 Dose: 1 mg Hydromorphone HCl (Hydromorphone Hcl 1 Mg/Ml Syringe) 1 mg IVPUSH Q4H PRN; Protocol PRN Reason: Pain, Severe (Pain Scale 7-10) Last Admin: 09/29/24 15:17 Dose: 1 mg Lactated Ringer's (Lr) 1,000 mls @ 150 mls/hr IVCONT .Q6H40M [facility] Last Admin: 09/29/24 11:37 Dose: 150 mls/hr Magnesium Hydroxide (Milk Of Magnesia 30 Ml Oral.Susp) 30 ml PO DAILY PRN PRN Reason: Constipation Melatonin (Melatonin 3 Mg Tablet) 6 mg PO BEDTIME PRN PRN Reason: Insomnia Morphine Sulfate (Morphine Sulfate 4 Mg/Ml Cartridge) 4 mg IVPUSH Q4H PRN; Protocol PRN Reason: Pain, Severe (Pain Scale 7-10) Last Admin: 09/29/24 14:08 Dose: 4 mg Omeprazole (Omeprazole 40 Mg Capsule.Dr) 40 mg PO DAILY@0630 [facility] Ondansetron HCl (Ondansetron Hcl 4 Mg/2 Ml Vial) 4 mg IVPUSH Q8H PRN PRN Reason: Nausea and Vomiting Last Admin: 09/29/24 15:16 Dose: 4 mg Sodium Chloride (0.9 % Sodium Chloride Flush 3 Ml Syringe) 3 ml IVFLUSH QSHIFT [facility] Thiamine HCl (Thiamine Hcl 100 Mg Tablet) 100 mg PO DAILY [facility] Last Admin: 09/29/24 15:16 Dose: 100 mg Allergies Allergies Allergy/AdvReac Type Severity Reaction Status Date / Time morphine [MORPHINE] Allergy Unknown PALPITATION Verified 09/29/24 07:28 S Assessment & Plan Assessment & Plan (1) Opioid use disorder, moderate, in sustained remission: Status: Acute Code(s): F11.21 - Opioid dependence, in remission Assessment and Plan: * hold buprenorphine for now (patient also declining it) * may require higher doses for pain management due to opioid tolerance, adjust as needed per patient response * will continue to follow up restart bupe when appropriate (2) Pancreatitis: Qualifiers: Acute pancreatitis complication: no infection or necrosis Chronicity: a cute Pancreatitis type: unspecified pancreatitis type Qualified Code(s): K 85.90 - Acute pancreatitis without necrosis or infection, unspecified Status: Acute Code(s): K85.90 - Acute pancreatitis without necrosis or infection, unspecified Assessment and Plan: * will meet with patient again to obtain better history related to alcohol use --unclear right now how often or how much he drinking * CIWA in place should withdrawal sx develop--pheono per protocol Total time managing care of this patient today __35__ minutes. [facility] Past Medical History Medical History (Updated 09/29/24 @ 11:46 by PRERNA Campbell) Multiple pulmonary nodules Alcohol use disorder Tubular adenoma Tobacco use disorder Opioid use disorder Surgical History Surgical History (Updated 09/29/24 @ 11:15 by PRERNA Campbell) History of lumbar fusion Social History Social History Alcohol intake: current Alcohol intake frequency: a few times a month Cigarette Packs Per Day: 1 Advance Directives: No Advance Directives Information Provided: Yes
[2024-09-29] MEDS: hydrALAZINE HCl 20 MG/ML VIAL 10 MG IVPUSH (18:18)
[2024-09-29 19:07] LABS: Hemoglobin 13.6 g/dl (14.0-18.0)
[2024-09-29] MEDS: 0.9 % Sodium Chloride Flush 3 ML SYRINGE IVFLUSH (22:10)
[2024-09-29] MEDS: diphenhydrAMINE HCL 50 MG/ML VIAL 25 MG IVPUSH (22:51)
[2024-09-30] VITALS (9 sets, daily range): BP systolic 150–183; BP diastolic 80–107; PULSE 60–99; RESP 14–20; TEMP 36.4–37.4; O2SAT 96–99
[2024-09-30] MEDS: Lactated Ringers 1,000 ML 150 ML IVCONT (01:19)
[2024-09-30] MEDS: HYDROmorphone HCl 1 MG/ML SYRINGE IVPUSH ×7 (02:16→21:28)
[2024-09-30 07:04] LABS: Basophils Percent Auto 0.2 % (0-2); Hematocrit 41.1 % (42.0-52.0); Hemoglobin 14.4 g/dl (14.0-18.0); Imm Gran Abs Auto 0.18 X10*3/uL (0.00-0.03); Imm Gran Pct Auto 0.7 % (0.0-0.4); Lymphocytes Absolute Auto 0.8 X10*3/uL (1.2-4.9); MANUAL DIFF FLAG SCAN; Mean Corpuscular Volume 82.9 fL (80.0-98.0); Mean Platelet Volume 9.4 fL (9.4-12.4); Monocytes Absolute Auto 1.7 X10*3/uL (0.1-1.2); Monocytes Percent Auto 6.9 % (2-11); Neutrophils Absolute Auto 22.5 x10*3/uL (2.0-8.3); Neutrophils Percent Auto 89.2 % (45-73); Platelet Count 390 X10*3/uL (160-400); Red Blood Count 4.96 X10*6/uL (4.60-5.80); Red Cell Distribution Width 14.6 % (11.0-16.0); SCAN SMEAR FLAG 1; White Blood Count 25.2 X10*3/uL (4.8-10.8)
[2024-09-30 07:37] LABS: Anion Gap 14 (12-20); Blood Urea Nitrogen 7 mg/dL (9-16); Calcium 9.4 mg/dL (8.4-10.2); Carbon Dioxide 24 mmol/L (22-29); Chloride 101 mmol/L (96-108); Creatinine Clr Calc Pharmacy 171.9; Estimated Glomerular Filt Rate > 60; Glucose Random 126 mg/dL (60-115); Lipase 1114 U/L (8-78); Potassium 3.2 mmol/L (3.3-5.1); Sodium 136 mmol/L (135-145)
[2024-09-30 08:07] LABS: SLIDE REVIEW VERIFIED
[2024-09-30] MEDS: Lactated Ringers 1,000 ML 200 ML IVCONT ×3 (08:38→22:20)
[2024-09-30 08:45] LABS: Alanine Aminotransferase 8 U/L (0-40); Albumin Level 3.6 g/dL (3.5-5.0); Alkaline Phosphatase 114 U/L (39-117); Aspartate Amino Transferase 20 U/L (5-37); Bilirubin Direct 0.2 mg/dL (0.0-0.5); Bilirubin Total 0.4 mg/dL (0.0-1.0); Total Protein 6.7 g/dL (6.5-8.0)
--- NOTE | 2024-09-30 08:48 | MHC.CM.PN ---
EMR REVIEWED, PT W/PANCREATITIS, CM MET W/PT WHO REPORTS HE LIVES ALONE, IS FULLY INDEP W/ALL CARE, DENIES USE OF DME, SEE'S JOSLYN SESAY AT [facility] FOR SUBOXONE AND NO OTHER SERVICES, PT ALREADY SEEN BY [facility], PT'S GOAL FOR DC IS HOME AND HE WILL CONTACT ONE OF HIS PARENTS FOR TRANSPORTATION. PT'S VERIFIES PCP ON FILE AND HAS BEEN EDUCATED ON AND DECLINES TO COMPLETE A HCP, PT AWARE HE CAN ASK FOR CM IF HE CHANGES HIS MIND.
[2024-09-30] MEDS: ondansetron HCL 4 MG/2 ML VIAL IVPUSH (08:54)
[2024-09-30] MEDS: Folic Acid 1 MG TABLET PO (09:04)
[2024-09-30] MEDS: Thiamine HCL 100 MG TABLET PO (09:04)
[2024-09-30] MEDS: Omeprazole 40 MG CAPSULE.DR PO (09:04)
[2024-09-30] MEDS: Lactated Ringers 500 ML 999 ML IV (09:23)
--- NOTE | 2024-09-30 09:27 | PC.NURSE ---
pt only has one IV access. This RN unable to give potassium IV and zosyn at this time. Will attempt second access.
[2024-09-30] MEDS: Potassium Chloride/H20 10 MEQ/100 ML PIGGYBACK 100 MEQ IV ×2 (10:12→11:37)
[2024-09-30] MEDS: Piperacillin Sodium/Tazobactam 3.375 GM in 0.9 % Sodium Chloride 50 ML IV ×3 (10:50→20:43)
[2024-09-30 11:21] LABS: Amphetamine Screen Urine Not Detected (Not Detect); Barbiturates, Urine Not Detected (Not Detect); Benzodiazepines Screen Urine Not Detected (Not Detect); Buprenorphine Scr Positive (Not Detect); Cannabinoid Screen Urine POSITIVE (Not Detect); Cocaine Screen Urine Not Detected (Not Detect); Fentanyl, urine Not Detected (Not Detect); Methadone Screen, Urine Not Detected (Not Detect); Opiate Screen Urine Not Detected (Not Detect); Oxycodone Screen Urine Not Detected (Not Detect); Phencyclidine Screen Urine Not Detected (Not Detect)
--- NOTE | 2024-09-30 12:06 | HO.PM.IMPN ---
Subjective Subjective Date of Service: 09/30/24 Interval History: Being followed for acute pancreatitis and alcohol use disorder Denies worsening of abdominal pain, had nausea vomiting overnight, no fevers, no chills, no withdrawal symptoms,CIWA 3. Feels thirsty requesting for fluids. Review of Systems All other system reviewed and are negative Physical Exam Vital Signs: Vital Signs: Last Vital Signs Temp 98.2 F 09/30/24 11:53 Pulse 60 09/30/24 11:53 Resp 18 09/30/24 11:53 BP 168/88 H 09/30/24 11:53 Pulse Ox 99 09/30/24 11:53 O2 Del Method Room Air 09/30/24 11:53 BMI result Body Mass Index 21.4 Const: Other: General awake alert x3, in no acute distress. Neck no JVD. CVS regular rate rhythm, Respiratory lungs clear to auscultation, no respiratory distress, no wheeze, no rhonchi. Gastrointestinal mid abdominal tenderness, bowel sounds audible, no guarding , no rigidity. Extremities no edema. Neuro non focal Skin no rash Appropriate affect Objective Data Active Medications Acetaminophen (Acetaminophen 325 Mg Tablet) 650 mg PO Q6H PRN PRN Reason: Pain, Mild 1-3,fever,headache Buprenorphine/Naloxone (Buprenorphine/Naloxone 8/2 Mg Film) [address] [facility] Last Admin: 09/30/24 08:54 Dose: 2 film Documented By: ROSIBEL Calcium Carbonate (Calcium Carbonate 750 Mg Tab.Chew) 750 mg PO Q4H PRN PRN Reason: Heartburn Folic Acid (Folic Acid 1 Mg Tablet) [address] [facility] Last Admin: 09/30/24 09:04 Dose: 1 mg Documented By: ROSIBEL Hydromorphone HCl (Hydromorphone Hcl 1 Mg/Ml Syringe) 1 mg IVPUSH Q3H PRN; Protocol PRN Reason: Pain, Severe (Pain Scale 7-10) Last Admin: 09/30/24 11:45 Dose: 1 mg Documented By: ROSIBEL Lactated Ringer's (Lr) 1,000 mls @ 200 mls/hr IVCONT .Q5H [facility] Last Infusion: 09/30/24 12:05 Dose: 200 mls/hr Documented By: RSOIBEL Piperacillin Sod/Tazobactam (Sod 3.375 gm/ Sodium Chloride) 50 mls @ 100 mls/hr IV Q6H [facility] Last Admin: 09/30/24 10:50 Dose: 100 mls/hr Documented By: ROSIBEL Magnesium Hydroxide (Milk Of Magnesia 30 Ml Oral.Susp) 30 ml PO DAILY PRN PRN Reason: Constipation Melatonin (Melatonin 3 Mg Tablet) 6 mg PO BEDTIME PRN PRN Reason: Insomnia Omeprazole (Omeprazole 40 Mg Capsule.Dr) 40 mg PO DAILY@0630 [facility] Last Admin: 09/30/24 09:04 Dose: 40 mg Documented By: ROSIBEL Ondansetron HCl (Ondansetron Hcl 4 Mg/2 Ml Vial) 4 mg IVPUSH Q8H PRN PRN Reason: Nausea and Vomiting Last Admin: 09/30/24 08:54 Dose: 4 mg Documented By: ROSIBEL Sodium Chloride (0.9 % Sodium Chloride Flush 3 Ml Syringe) [address] [facility] Last Admin: 09/30/24 09:12 Dose: Not Given Documented By: ROSIBEL Non-Admin Reason: IV Running Thiamine HCl (Thiamine Hcl 100 Mg Tablet) [address] [facility] Last Admin: 09/30/24 09:04 Dose: 100 mg Documented By: ROSIBEL Labs 09/30/24 06:32 09/30/24 06:32 Labs: Laboratory Results - last 24 hr 09/30/24 09/30/24 06:32 10:57 MCV 82.9 MCH 29.0 MCHC 35.0 RDW 14.6 Plt Count 390 MPV 9.4 Immature Gran % (Auto) 0.7 H Neut % (Auto) 89.2 H Lymph % (Auto) 3.0 L [place] % (Auto) 6.9 Eos % (Auto) 0.0 Baso % (Auto) 0.2 Lymph # (Auto) 0.8 L [place] # (Auto) 1.7 H Eos # (Auto) 0.0 Baso # (Auto) 0.0 Abs Immat Gran (auto) 0.18 H Absolute Neuts (auto) 22.5 H Absolute Nucleated RBC 0.000 Nucleated RBC % (auto) 0.0 Smear Tech's Comments VERIFIED Anion Gap 14 Estim Creat Clear Calc 171.9 Estimated GFR > 60 Random Glucose 126 H Calcium 9.4 Magnesium 1.4 L* Total Bilirubin 0.4 Direct Bilirubin 0.2 AST 20 ALT 8 Alkaline Phosphatase 114 Total Protein 6.7 Albumin 3.6 Lipase 1114 H Urine Opiates Screen Not Detected Ur Buprenorphine Scrn Positive H Ur Oxycodone Screen Not Detected Urine Methadone Screen Not Detected Urine Fentanyl Screen Not Detected Ur Barbiturates Screen Not Detected Ur Phencyclidine Scrn Not Detected Ur Amphetamines Screen Not Detected U Benzodiazepines Scrn Not Detected Urine Cocaine Screen Not Detected U Marijuana (THC) Screen POSITIVE H Microbiology Microbiology Results: Microbiology 09/29/24 08:18 Blood Culture - Preliminary Blood - Venous No growth after 24 hours. 09/29/24 08:10 Blood Culture - Preliminary Blood - Venous No growth after 24 hours. Assessment and Plan (1) Bradycardia: Status: Acute (2) Alcohol use disorder: Status: Acute (3) Pancreatitis: Status: Acute (4) Lower gastrointestinal hemorrhage: Status: Acute (5) Opioid use disorder, moderate, in sustained remission: Status: Acute (6) Tobacco use disorder: Status: Acute Plan 44-year-old male with history of opioid use disorder stable on Suboxone, lumbar radiculopathy with history of lumbar fusion, history of meralgia paresthetica, multiple pulmonary nodules, tubular adenoma of colon with history of rectal bleeding who currently smokes 1 pack of cigarettes on a daily basis and was working to quit admitted [facility] for further management of acute alcoholic pancreatitis with bright red blood per rectum, and marked bradycardia. Acute alcoholic pancreatitis/alcohol use disorder Reports consuming >10 alcoholic beverages daily over the last 3 days Lipase 323, on admission worsened to 1114, potassium 3.2, stable LFTs, WBC bumped to 25.2, no worsening abdominal pain, no distention CT abdomen/pelvis shows evidence of fat stranding around the head of the pancreas Triglycerides within normal limits. No evidence of biliary obstruction Continue Aggressive IV fluid resuscitation with LR at 200 mL/hr x 1 L then 150 mL Antiemetics p.r.n. Analgesia p.r.n. with IV Dilaudid and oxycodone using pain scale CIWA, for hold phenobarb protocol Follow CBC electrolytes, calcium Place on clear liquid diet Case discussed with GI she agree with above treatment plan, repeat imaging studies if noted to have worsening symptoms and labs. Bright red blood per rectum with intermittent diarrhea Repeat hematocrit stable /no recurrent episodes of GI bleed Colonoscopy 2018 [facility] revealed tubular adenoma, denies further follow up with GI. Seen by PCP yesterday who also ordered colonoscopy GI panel and cdiff pcr un collected due to lack of diarrhea Seen by GI rec outpatient colonoscopy, due to Unintentional WL -20 lbs last 2 months, hold flex sigmoidoscopy due to worsening acute pancreatitis and stable hematocrit. Marked sinus bradycardia- stable/asymptomatic Heart rate improved to 60s, patient asymptomatic , EKG with chronic early repolarization changes Seen by Cardiology no further workup warranted. Acute leukocytosis noted to have worsening WBC, likely due to acute pancreatitis, no sepsis, added IV antibiotics follow CBC Hypertensive urgency in setting of pain/withdrawal, not on antihypertensives at home , follow BP remains elevated consider Norvasc. OUD addiction med consult, continue buprenorphine Cigarette smoking Cessation encouraged, Declines replacement therapy DVT proph- SCPs given rectal bleeding Full code Pt requires continued inpt stay for management of acute alcohol withdrawal , aggressive IVF resuscitation for acute pancreatitis, and IV pain management. Quality Stroke Does the patient have a stroke diagnosis?: No VTE Prior VTE?: No VTE Risk Level:: Medical - moderate - high VTE Device Contraindication: N/A - Device Ordered VTE Drug Contraindication: Treatment Not Indicated
[2024-09-30 12:24] LABS: Magnesium 1.4 mg/dL (1.6-2.6)
--- NOTE | 2024-09-30 12:24 | HO.ADDICTPRO ---
Subjective Subjective Date of Service: 09/30/24 Reason For Visit: acute alcoholic pancreatitis rectal bleeding nik Interim History: Patient seen in follow up Awake, alert, able to engage in interview, although still reporting so much pain . Discussed alcohol use --he reports that he binged this weekend while away with his friends, and states that this is not the norm for him. He reports drinking btwn 2-4 beers daily after work with a shot occasionally . He states he does not drink on days he has his children. Denies any history of withdrawal sx. Denies any previous history of pancreatitis. Discussed risk of recurrence with ongoing alcohol use. Discussed weight loss--he attributes this to poor appetite related to stress--states he has a lot on his mind, and has been considering seeking out a therapist. Re pain management. He declined his buprenorphine dose this morning as he felt it would block current pain medications. Advised patient that, that would not be the case, however he states that he would rather resume when pain has subsided. He continues to endorse severe abdominal pain. Denies any nausea, chills, body aches or diaphoresis. He does report poor sleep. While he is grimacing and appearing uncomfortable, overall appearance is much improved from yesterday when seen in the ED. Review of Systems Medical Review of Systems: unchanged Review of Systems Constitutional: Reports as per HPI Mental Status Exam Mental Status Exam Patient Appearance: Appropriate Level of Consciousness: Awake, Appropriate and Alert Patient Behavior: Appropriate Affect Description: Calm Speech Pattern: Clear Hallucinations: None Thought Process: Intact Judgement: Good Diagnostics Vital Signs (24Hr): Vital Signs - 24 hr 09/29/24 14:08 09/29/24 17:29 09/29/24 19:42 Temperature 97.8 F 98.0 F Pulse Rate 60 58 Respiratory Rate 18 20 18 Blood Pressure 197/95 H 168/86 H Pulse Oximetry 99 95 Oxygen Delivery Method Room Air Room Air 09/30/24 00:00 09/30/24 04:00 09/30/24 07:38 Temperature 98.0 F 98.2 F 97.5 F Pulse Rate 69 84 68 Respiratory Rate 14 16 17 Blood Pressure 183/90 H 170/80 H 168/83 H Pulse Oximetry 98 99 96 Oxygen Delivery Method Room Air Room Air Room Air 09/30/24 11:53 Temperature 98.2 F Pulse Rate 60 Respiratory Rate 18 Blood Pressure 168/88 H Pulse Oximetry 99 Oxygen Delivery Method Room Air BMI result Body Mass Index 21.4 Labs 09/30/24 06:32 09/30/24 06:32 Labs: Laboratory Results - last 48 hr 09/29/24 09/29/24 09/29/24 07:32 08:09 11:21 WBC 16.5 H 15.6 H RBC 5.06 4.80 Hgb 14.4 13.5 L Hct 42.8 41.6 L MCV 84.6 86.7 MCH 28.5 28.1 MCHC 33.6 32.5 RDW 15.2 15.1 Plt Count 410 H 373 MPV 9.3 L 9.4 Immature Gran % (Auto) 0.7 H 0.8 H Neut % (Auto) 82.4 H 90.7 H Lymph % (Auto) 8.9 L 4.0 L [place] % (Auto) 7.1 4.2 Eos % (Auto) 0.5 0.0 Baso % (Auto) 0.4 0.3 Lymph # (Auto) 1.5 0.6 L [place] # (Auto) 1.2 0.7 Eos # (Auto) 0.1 0.0 Baso # (Auto) 0.1 0.1 Abs Immat Gran (auto) 0.11 H 0.12 H Absolute Neuts (auto) 13.6 H 14.1 H Absolute Nucleated RBC 0.000 0.000 Nucleated RBC % (auto) 0.0 0.0 Smear Tech's Comments VERIFIED Sodium 142 Potassium 3.6 Chloride 107 Carbon Dioxide 23 Anion Gap 16 BUN 8 L Creatinine 0.71 Estim Creat Clear Calc 138.0 Estimated GFR > 60 Random Glucose 138 H Lactic Acid 0.9 Calcium 9.4 Magnesium Total Bilirubin 0.4 Direct Bilirubin AST 23 ALT 17 Alkaline Phosphatase 126 H Lactate Dehydrogenase 161 Troponin I High Sens < 2.7 Total Protein 7.0 Albumin 3.7 Triglycerides 118 Lipase 323 H Urine Opiates Screen Ur Buprenorphine Scrn Ur Oxycodone Screen Urine Methadone Screen Urine Fentanyl Screen Ur Barbiturates Screen Ur Phencyclidine Scrn Ur Amphetamines Screen U Benzodiazepines Scrn Urine Cocaine Screen U Marijuana (THC) Screen Ethyl Alcohol < 10 Blood Type A Positive Antibody Screen NEGATIVE 09/29/24 09/30/24 09/30/24 18:57 06:32 10:57 WBC 25.2 H RBC 4.96 Hgb 13.6 L 14.4 Hct 40.0 L 41.1 L MCV 82.9 MCH 29.0 MCHC 35.0 RDW 14.6 Plt Count 390 MPV 9.4 Immature Gran % (Auto) 0.7 H Neut % (Auto) 89.2 H Lymph % (Auto) 3.0 L [place] % (Auto) 6.9 Eos % (Auto) 0.0 Baso % (Auto) 0.2 Lymph # (Auto) 0.8 L [place] # (Auto) 1.7 H Eos # (Auto) 0.0 Baso # (Auto) 0.0 Abs Immat Gran (auto) 0.18 H Absolute Neuts (auto) 22.5 H Absolute Nucleated RBC 0.000 Nucleated RBC % (auto) 0.0 Smear Tech's Comments VERIFIED Sodium 136 Potassium 3.2 L Chloride 101 Carbon Dioxide 24 Anion Gap 14 BUN 7 L Creatinine 0.57 Estim Creat Clear Calc 171.9 Estimated GFR > 60 Random Glucose 126 H Lactic Acid Calcium 9.4 Magnesium 1.4 L* Total Bilirubin 0.4 Direct Bilirubin 0.2 AST 20 ALT 8 Alkaline Phosphatase 114 Lactate Dehydrogenase Troponin I High Sens Total Protein 6.7 Albumin 3.6 Triglycerides Lipase 1114 H Urine Opiates Screen Not Detected Ur Buprenorphine Scrn Positive H Ur Oxycodone Screen Not Detected Urine Methadone Screen Not Detected Urine Fentanyl Screen Not Detected Ur Barbiturates Screen Not Detected Ur Phencyclidine Scrn Not Detected Ur Amphetamines Screen Not Detected U Benzodiazepines Scrn Not Detected Urine Cocaine Screen Not Detected U Marijuana (THC) Screen POSITIVE H Ethyl Alcohol Blood Type Antibody Screen Imaging Radiology Impressions: ITS Impressions Abdomen/Pelvis CT 09/29/24 07:51 IMPRESSION: 1. Lung bases demonstrating innumerable tiny groundglass nodules bilaterally, with associated centrilobular emphysematous change, and small airway thickening/foci of endobronchial mucous plugging. Findings most likely represent endobronchial spread of infection and associated small airways infectious/inflammatory disease. If the patient is a smoker, consider smoking-related lung disease (respiratory bronchiolitis, RB/ILD). 2. There is a focus of arterial phase enhancement in the left inferior rectum just above the anal verge, most likely hemorrhoidal. No pooling on delayed phase. 3. There are 2 foci of arterial phase enhancement in the distal sigmoid and proximal rectum, possible angiodysplasia. No significant contrast pooling on delayed phase imaging. 4. Minimal fat stranding surrounding the head of the pancreas. Correlate for laboratory abnormalities of pancreatitis. Electronically signed by: Mike Gannon MD 09/29/2024 09:08 AM EDT Medications Medications Current Medications Acetaminophen (Acetaminophen 325 Mg Tablet) 650 mg PO Q6H PRN PRN Reason: Pain, Mild 1-3,fever,headache Buprenorphine/Naloxone (Buprenorphine/Naloxone 8/2 Mg Film) 2 film SUBLINGUAL DAILY [facility] Last Admin: 09/30/24 08:54 Dose: 2 film Calcium Carbonate (Calcium Carbonate 750 Mg Tab.Chew) 750 mg PO Q4H PRN PRN Reason: Heartburn Folic Acid (Folic Acid 1 Mg Tablet) 1 mg PO DAILY [facility] Last Admin: 09/30/24 09:04 Dose: 1 mg Hydromorphone HCl (Hydromorphone Hcl 1 Mg/Ml Syringe) 1 mg IVPUSH Q3H PRN; Protocol PRN Reason: Pain, Severe (Pain Scale 7-10) Last Admin: 09/30/24 11:45 Dose: 1 mg Lactated Ringer's (Lr) 1,000 mls @ 200 mls/hr IVCONT .Q5H [facility] Last Infusion: 09/30/24 12:05 Dose: 200 mls/hr Piperacillin Sod/Tazobactam (Sod 3.375 gm/ Sodium Chloride) 50 mls @ 100 mls/hr IV Q6H [facility] Last Infusion: 09/30/24 12:06 Dose: Infused Magnesium Hydroxide (Milk Of Magnesia 30 Ml Oral.Susp) 30 ml PO DAILY PRN PRN Reason: Constipation Melatonin (Melatonin 3 Mg Tablet) 6 mg PO BEDTIME PRN PRN Reason: Insomnia Omeprazole (Omeprazole 40 Mg Capsule.Dr) 40 mg PO DAILY@0630 [facility] Last Admin: 09/30/24 09:04 Dose: 40 mg Ondansetron HCl (Ondansetron Hcl 4 Mg/2 Ml Vial) 4 mg IVPUSH Q8H PRN PRN Reason: Nausea and Vomiting Last Admin: 09/30/24 08:54 Dose: 4 mg Sodium Chloride (0.9 % Sodium Chloride Flush 3 Ml Syringe) 3 ml IVFLUSH QSHIFT [facility] Last Admin: 09/30/24 09:12 Dose: Not Given Thiamine HCl (Thiamine Hcl 100 Mg Tablet) 100 mg PO DAILY [facility] Last Admin: 09/30/24 09:04 Dose: 100 mg Allergies Allergies Allergy/AdvReac Type Severity Reaction Status Date / Time morphine [MORPHINE] Allergy Unknown PALPITATION Verified 09/29/24 07:28 S Assessment & Plan Assessment & Plan (1) Opioid use disorder, moderate, in sustained remission: Status: Acute Code(s): F11.21 - Opioid dependence, in remission Assessment and Plan: plan to resume buprenorphine once pain improved, prior to discharge (2) Alcohol use disorder: Status: Acute Code(s): F10.90 - Alcohol use, unspecified, uncomplicated Assessment and Plan: mild ---with acute pancreatitis no withdrawal sx discussed alternate coping strategies for stress, and discussed concern for increase in alcohol intake without effective coping strategies and support declines medications for BLADIMIR at this time, and already engaged with [facility] provider with appt in place--but would like information on accessing a therapist, pattern technician to provide this. Total time managing care of this patient today _35___ minutes.
[2024-09-30] MEDS: Magnesium Sulfate/H2O 2 GM/50 ML PIGGYBACK IV (13:12)
[2024-09-30] MEDS: Acetaminophen 325 MG TABLET 650 MG PO (18:29)
[2024-10-01] MEDS: 0.9 % Sodium Chloride Flush 3 ML SYRINGE IVFLUSH
[2024-10-01] MEDS: HYDROmorphone HCl 1 MG/ML SYRINGE IVPUSH ×10 (00:28→22:35)
[2024-10-01] MEDS: Piperacillin Sodium/Tazobactam 3.375 GM in 0.9 % Sodium Chloride 50 ML IV ×4 (02:00→20:24)
[2024-10-01 04:00] VITALS: BP 152/99; PULSE 97; RESP 18; TEMP 36.9; O2SAT 97
[2024-10-01] MEDS: Lactated Ringers 1,000 ML 200 ML IVCONT ×2 (05:43→08:29)
[2024-10-01] MEDS: Omeprazole 40 MG CAPSULE.DR PO (06:39)
[2024-10-01 07:02] LABS: Hematocrit 45.9 % (42.0-52.0); Hemoglobin 15.7 g/dl (14.0-18.0); Mean Corpuscular HGB Conc 34.2 g/dl (31.0-36.0); Mean Corpuscular Hemoglobin 28.6 pg (27.0-33.0); Mean Corpuscular Volume 83.6 fL (80.0-98.0); Mean Platelet Volume 9.3 fL (9.4-12.4); Platelet Count 392 X10*3/uL (160-400); Red Blood Count 5.49 X10*6/uL (4.60-5.80); White Blood Count 23.8 X10*3/uL (4.8-10.8)
[2024-10-01 07:20] LABS: Alanine Aminotransferase 9 U/L (0-40); Albumin Level 3.7 g/dL (3.5-5.0); Alkaline Phosphatase 112 U/L (39-117); Anion Gap 14 (12-20); Aspartate Amino Transferase 21 U/L (5-37); Bilirubin Direct 0.2 mg/dL (0.0-0.5); Bilirubin Total 0.5 mg/dL (0.0-1.0); Blood Urea Nitrogen 6 mg/dL (9-16); Calcium 9.4 mg/dL (8.4-10.2); Carbon Dioxide 27 mmol/L (22-29); Chloride 101 mmol/L (96-108); Creatinine Clr Calc Pharmacy 163.3; Estimated Glomerular Filt Rate > 60; Glucose Random 98 mg/dL (60-115); Potassium 3.2 mmol/L (3.3-5.1); Sodium 139 mmol/L (135-145); Total Protein 6.8 g/dL (6.5-8.0)
[2024-10-01 07:30] VITALS: BP 156/106; PULSE 108; RESP 20; TEMP 37.3; O2SAT 97
[2024-10-01 08:11] LABS: Magnesium 1.6 mg/dL (1.6-2.6)
[2024-10-01 08:19] LABS: Lipase 432 U/L (8-78)
[2024-10-01] MEDS: Folic Acid 1 MG TABLET PO (08:29)
[2024-10-01] MEDS: Thiamine HCL 100 MG TABLET PO (08:29)
[2024-10-01] MEDS: Acetaminophen 325 MG TABLET 650 MG PO ×2 (09:36→16:22)
[2024-10-01 11:18] VITALS: BP 164/100; PULSE 102; RESP 20; TEMP 37.1; O2SAT 97
[2024-10-01] MEDS: iohexoL 350 MG/ML 75 ML INFUS..BTL 85 ML IV (12:10)
--- NOTE | 2024-10-01 12:45 | P.PNIM_ITS ---
Subjective Subjective Date of Service: 10/01/24 Interval History: Complaining of worsening mid abdominal pain, unable to tolerate clear liquids due to pain, denies fever, no chills, no nausea, no vomiting, last bowel movement . Review of Systems All other system reviewed and are negative Physical Exam 2 Vital Signs: Vital Signs: Last Vital Signs Temp 98.7 F 10/01/24 11:18 Pulse 102 H 10/01/24 11:18 Resp 20 10/01/24 11:18 BP 164/100 H 10/01/24 11:18 Pulse Ox 97 10/01/24 11:18 O2 Del Method Room Air 10/01/24 11:18 BMI result Body Mass Index 21.4 Const: Other: General awake alert x3, in no acute distress. Neck no JVD. CVS regular rate rhythm, Respiratory lungs clear to auscultation, no respiratory distress, no wheeze, no rhonchi. Gastrointestinal mid abdominal tenderness, no distention, bowel sounds audible, no guarding , no rigidity. Extremities no edema. Neuro non focal Skin no rash Appropriate affect Objective Data Active Medications Acetaminophen (Acetaminophen 325 Mg Tablet) 650 mg PO Q6H PRN PRN Reason: Pain, Mild 1-3,fever,headache Last Admin: 10/01/24 09:36 Dose: 650 mg Documented By: KAROLINA Buprenorphine/Naloxone (Buprenorphine/Naloxone 8/2 Mg Film) 2 film SUBLINGUAL DAILY [facility] Last Admin: 10/01/24 08:03 Dose: Not Given Documented By: KAROLINA Non-Admin Reason: Physician Held Med Calcium Carbonate (Calcium Carbonate 750 Mg Tab.Chew) 750 mg PO Q4H PRN PRN Reason: Heartburn Folic Acid (Folic Acid 1 Mg Tablet) 1 mg PO DAILY [facility] Last Admin: 10/01/24 08:29 Dose: 1 mg Documented By: KAROLINA Hydromorphone HCl (Hydromorphone Hcl 1 Mg/Ml Syringe) 1 mg IVPUSH Q2H PRN; Protocol PRN Reason: Pain, Severe (Pain Scale 7-10) Last Admin: 10/01/24 12:03 Dose: 1 mg Documented By: KAROLINA Piperacillin Sod/Tazobactam (Sod 3.375 gm/ Sodium Chloride) 50 mls @ 100 mls/hr IV Q6H [facility] Last Infusion: 10/01/24 09:05 Dose: Infused Documented By: KAROLINA Magnesium Hydroxide (Milk Of Magnesia 30 Ml Oral.Susp) 30 ml PO DAILY PRN PRN Reason: Constipation Melatonin (Melatonin 3 Mg Tablet) 6 mg PO BEDTIME PRN PRN Reason: Insomnia Omeprazole (Omeprazole 40 Mg Capsule.Dr) 40 mg PO DAILY@0630 [facility] Last Admin: 10/01/24 06:39 Dose: 40 mg Documented By: MICHAEL Ondansetron HCl (Ondansetron Hcl 4 Mg/2 Ml Vial) 4 mg IVPUSH Q8H PRN PRN Reason: Nausea and Vomiting Last Admin: 09/30/24 08:54 Dose: 4 mg Documented By: ROSIBEL Sodium Chloride (0.9 % Sodium Chloride Flush 3 Ml Syringe) 3 ml IVFLUSH QSHIFT [facility] Last Admin: 10/01/24 07:47 Dose: Not Given Documented By: KAROLINA Non-Admin Reason: IV Running Thiamine HCl (Thiamine Hcl 100 Mg Tablet) 100 mg PO DAILY [facility] Last Admin: 10/01/24 08:29 Dose: 100 mg Documented By: KAROLINA Labs 10/01/24 06:52 10/01/24 06:52 Labs: Laboratory Results - last 24 hr 10/01/24 06:52 MCV 83.6 MCH 28.6 MCHC 34.2 RDW 15.0 Plt Count 392 MPV 9.3 L Absolute Nucleated RBC 0.000 Nucleated RBC % (auto) 0.0 Anion Gap 14 Estim Creat Clear Calc 163.3 Estimated GFR > 60 Random Glucose 98 Calcium 9.4 Magnesium 1.6 Total Bilirubin 0.5 Direct Bilirubin 0.2 AST 21 ALT 9 Alkaline Phosphatase 112 Total Protein 6.8 Albumin 3.7 Lipase 432 H Microbiology Microbiology Results: Microbiology 09/29/24 08:18 Blood Culture - Preliminary Blood - Venous No growth after 48 hours. 09/29/24 08:10 Blood Culture - Preliminary Blood - Venous No growth after 48 hours. Assessment and Plan (1) Bradycardia: Status: Acute (2) Alcohol use disorder: Status: Acute (3) Pancreatitis: Status: Acute (4) Lower gastrointestinal hemorrhage: Status: Acute Plan 44-year-old male with history of opioid use disorder stable on Suboxone, lumbar radiculopathy with history of lumbar fusion, history of meralgia paresthetica, multiple pulmonary nodules, tubular adenoma of colon with history of rectal bleeding who currently smokes 1 pack of cigarettes on a daily basis and was working to quit admitted to the med/tele for further management of acute alcoholic pancreatitis with bright red blood per rectum, and marked bradycardia. Acute alcoholic pancreatitis/alcohol use disorder Complaining of worsening abdominal pain, IV Dilaudid give relieve for 1 hours only Reports consuming >10 alcoholic beverages daily over the last 3 days Lipase 323, on admission worsened to 1114, now trended down to 432 stable LFTs, WBC 25.2 trending down to 23.8 CT abdomen/pelvis shows evidence of fat stranding around the head of the pancreas Triglycerides within normal limits. No evidence of biliary obstruction on IV LR at 150 mL/hr , continue Antiemetics p.r.n. Analgesia p.r.n. with IV Dilaudid and oxycodone using pain scale CIWA 1, hold phenobarb protocol Due to worsening abdominal pain and persistent leukocytosis will obtain CTA abdomen and adjust dose of Dilaudid Follow CBC electrolytes, calcium clear liquid diet Acute hypokalemia will replete and follow labs Acute hypo magnesemia repleted and normalized Bright red blood per rectum with intermittent diarrhea Repeat hematocrit stable /no recurrent episodes of GI bleed Colonoscopy 2018 [facility] revealed tubular adenoma, denies further follow up with GI. Seen by PCP yesterday who also ordered colonoscopy GI panel and cdiff pcr un collected due to lack of diarrhea Seen by GI rec outpatient colonoscopy, due to Unintentional WL -20 lbs last 2 months, hold flex sigmoidoscopy due to worsening acute pancreatitis and stable hematocrit. Marked sinus bradycardia- stable/asymptomatic Heart rate improved to 60s, patient asymptomatic , EKG with chronic early repolarization changes Seen by Cardiology no further workup warranted. Acute leukocytosis noted to have worsening WBC, likely due to acute pancreatitis,/reactive, no sepsis, continue IV Zosyn follow CT abdomen and pelvis Hypertensive urgency in setting of pain/withdrawal, not on antihypertensives at home , follow BP if remains elevated consider Norvasc. OUD addiction med consult, DC buprenorphine and resume buprenorphine once pain has subsided Cigarette smoking Cessation encouraged, Declines replacement therapy DVT proph- SCPs given rectal bleeding Full code Pt requires continued inpt stay for management of acute alcohol withdrawal , aggressive IVF resuscitation for acute pancreatitis, and IV pain management. Quality Stroke Does the patient have a stroke diagnosis?: No VTE Prior VTE?: No VTE Risk Level:: Medical - moderate - high VTE Device Contraindication: N/A - Device Ordered VTE Drug Contraindication: Treatment Not Indicated
[2024-10-01] MEDS: Magnesium Sulfate/H2O 2 GM/50 ML PIGGYBACK IV (14:01)
[2024-10-01] MEDS: Potassium Chloride/H20 10 MEQ/100 ML PIGGYBACK 100 MEQ IV ×2 (14:01→15:18)
[2024-10-01 15:27] VITALS: BP 155/80; PULSE 96; RESP 18; TEMP 36.7; O2SAT 96
[2024-10-01 19:23] VITALS: BP 165/80; PULSE 91; RESP 18; TEMP 36.7; O2SAT 97
[2024-10-01 23:49] VITALS: BP 150/75; PULSE 99; RESP 16; TEMP 36.7; O2SAT 97
[2024-10-02] MEDS: 0.9 % Sodium Chloride Flush 3 ML SYRINGE IVFLUSH ×2 (00:30→08:51)
[2024-10-02] MEDS: HYDROmorphone HCl 1 MG/ML SYRINGE IVPUSH ×6 (00:35→12:53)
[2024-10-02] MEDS: Piperacillin Sodium/Tazobactam 3.375 GM in 0.9 % Sodium Chloride 50 ML IV ×2 (02:40→08:38)
[2024-10-02] MEDS: LORazepam 0.5 MG TABLET PO (02:40)
[2024-10-02] MEDS: Simethicone 80 MG TAB.CHEW PO ×2 (03:06→11:48)
[2024-10-02 03:10] VITALS: BP 160/90; PULSE 112; RESP 18; TEMP 36.6; O2SAT 98
[2024-10-02] MEDS: Omeprazole 40 MG CAPSULE.DR PO (06:34)
[2024-10-02 07:29] LABS: Hematocrit 46.3 % (42.0-52.0); Hemoglobin 15.7 g/dl (14.0-18.0); Mean Corpuscular HGB Conc 33.9 g/dl (31.0-36.0); Mean Corpuscular Hemoglobin 28.1 pg (27.0-33.0); Mean Corpuscular Volume 82.8 fL (80.0-98.0); Platelet Count 396 X10*3/uL (160-400); Red Blood Count 5.59 X10*6/uL (4.60-5.80); Red Cell Distribution Width 14.9 % (11.0-16.0)
[2024-10-02 07:32] VITALS: BP 143/111; PULSE 108; RESP 20; TEMP 36.9; O2SAT 97
[2024-10-02 07:43] LABS: Anion Gap 16 (12-20); Blood Urea Nitrogen 11 mg/dL (9-16); Calcium 9.3 mg/dL (8.4-10.2); Carbon Dioxide 24 mmol/L (22-29); Chloride 100 mmol/L (96-108); Creatinine Clr Calc Pharmacy 160.6; Estimated Glomerular Filt Rate > 60; Glucose Random 82 mg/dL (60-115); Lipase 112 U/L (8-78); Sodium 137 mmol/L (135-145)
[2024-10-02 08:00] VITALS: PULSE 111
[2024-10-02] MEDS: ondansetron HCL 4 MG/2 ML VIAL IVPUSH (08:38)
[2024-10-02] MEDS: Folic Acid 1 MG TABLET PO (08:39)
[2024-10-02] MEDS: Thiamine HCL 100 MG TABLET PO (08:39)
[2024-10-02] MEDS: Acetaminophen 325 MG TABLET 650 MG PO (08:43)
--- NOTE | 2024-10-02 10:49 | MHC.CM.PN ---
Per ROUNDS discussion, Patient is not yet medically cleared for dc (ETOH Withdrawal & pain management); home is the goal and cm will continue to follow.
--- NOTE | 2024-10-02 11:30 | HO.PM.IMPN ---
Subjective Subjective Date of Service: 10/02/24 Interval History: Complaining of persistent mid abdominal pain no improvement since yesterday on Dilaudid 1 mg q.2 hours and oxycodone prn Tolerating some clear liquid diet, no nausea, no vomiting, no fevers, no chills, no diarrhea Review of Systems All other system reviewed and negative Physical Exam Vital Signs: Vital Signs: Last Vital Signs Temp 98.5 F 10/02/24 07:32 Pulse 108 H 10/02/24 07:32 Resp 20 10/02/24 07:32 BP 143/111 H 10/02/24 07:32 Pulse Ox 97 10/02/24 07:32 O2 Del Method Room Air 10/02/24 07:32 BMI result Body Mass Index 21.4 Const: Other: General awake alert x3, in no acute distress. Neck no JVD. CVS regular rate rhythm, Respiratory lungs clear to auscultation, no respiratory distress, no wheeze, no rhonchi. Gastrointestinal mid abdominal tenderness, soft, no distention, bowel sounds audible, no guarding , no rigidity. Extremities no edema. Neuro non focal Skin no rash Appropriate affect Objective Data Active Medications Acetaminophen (Acetaminophen 325 Mg Tablet) 650 mg PO Q6H PRN PRN Reason: Pain, Mild 1-3,fever,headache Last Admin: 10/02/24 08:43 Dose: 650 mg Documented By: KAROLINA Calcium Carbonate (Calcium Carbonate 750 Mg Tab.Chew) 750 mg PO Q4H PRN PRN Reason: Heartburn Folic Acid (Folic Acid 1 Mg Tablet) 1 mg PO DAILY [facility] Last Admin: 10/02/24 08:39 Dose: 1 mg Documented By: KAROLINA Hydromorphone HCl (Hydromorphone Hcl 1 Mg/Ml Syringe) 0.5 mg IVPUSH Q4H PRN; Protocol PRN Reason: Pain, Severe (Pain Scale 7-10) Piperacillin Sod/Tazobactam (Sod 3.375 gm/ Sodium Chloride) 50 mls @ 100 mls/hr IV Q6H [facility]PLACED [facility] Last Infusion: 10/02/24 09:19 Dose: Infused Documented By: KAROLINA Magnesium Hydroxide (Milk Of Magnesia 30 Ml Oral.Susp) 30 ml PO DAILY PRN PRN Reason: Constipation Melatonin (Melatonin 3 Mg Tablet) 6 mg PO BEDTIME PRN PRN Reason: Insomnia Omeprazole (Omeprazole 40 Mg Capsule.) 40 mg PO DAILY@0630 [facility]PL[facility] Last Admin: 10/02/24 06:34 Dose: 40 mg Documented By: MICHAEL Ondansetron HCl (Ondansetron Hcl 4 Mg/2 Ml Vial) 4 mg IVPUSH Q8H PRN PRN Reason: Nausea and Vomiting Last Admin: 10/02/24 08:38 Dose: 4 mg Documented By: KAROLINA Simethicone (Simethicone 80 Mg Tab.Chew) 80 mg PO QIDWMHS PRN PRN Reason: Gas Last Admin: 10/02/24 03:06 Dose: 80 mg Documented By: MICHAEL Sodium Chloride (0.9 % Sodium Chloride Flush 3 Ml Syringe) 3 ml IVFLUSH QSHIFT REPLACED BY [facility] Last Admin: 10/02/24 08:51 Dose: 3 ml Documented By: KAROLINA Thiamine HCl (Thiamine Hcl 100 Mg Tablet) 100 mg PO DAILY [facility] Last Admin: 10/02/24 08:39 Dose: 100 mg Documented By: KAROLINA Labs 10/02/24 06:36 10/02/24 06:36 Labs: Laboratory Results - last 24 hr 10/02/24 06:36 MCV 82.8 MCH 28.1 MCHC 33.9 RDW 14.9 Plt Count 396 MPV 10.0 Absolute Nucleated RBC 0.000 Nucleated RBC % (auto) 0.0 Anion Gap 16 Estim Creat Clear Calc 160.6 Estimated GFR > 60 Random Glucose 82 Calcium 9.3 Magnesium 2.0 Lipase 112 H Microbiology Microbiology Results: Microbiology 09/29/24 08:18 Blood Culture - Preliminary Blood - Venous No growth after 48 hours. 09/29/24 08:10 Blood Culture - Preliminary Blood - Venous No growth after 48 hours. Assessment and Plan (1) Bradycardia: Status: Acute (2) Alcohol use disorder: Status: Acute (3) Pancreatitis: Status: Acute (4) Lower gastrointestinal hemorrhage: Status: Acute (5) Opioid use disorder, moderate, in sustained remission: Status: Acute Plan 44-year-old male with history of opioid use disorder stable on Suboxone, lumbar radiculopathy with history of lumbar fusion, history of meralgia paresthetica, multiple pulmonary nodules, tubular adenoma of colon with history of rectal bleeding who currently smokes 1 pack of cigarettes on a daily basis and was working to quit admitted to the med/tele for further management of acute alcoholic pancreatitis with bright red blood per rectum, and marked bradycardia. Acute alcoholic pancreatitis/alcohol use disorder Complaining of persistent unchanged abdominal pain,on IV Dilaudid q2h prn Reports consuming >10 alcoholic beverages daily over the last 3 days Lipase 323, on admission worsened to 1114,> 432 >112 stable LFTs, WBC 25.2 trending down to 23.8 >[address] abdomen/pelvis 09/29 shows evidence of fat stranding around the head of the pancreas, repeat CT abdomen 10/01 showed small fluid and fat stranding surrounding pancreas concerning for acute interstitial edematous pancreatitis no evidence of necrosis, bowel thickening of the descending colon and sigmoid colon colitis can not be excluded Triglycerides within normal limits. No evidence of biliary obstruction, normal calcium. dc IVF , continue Antiemetics p.r.n. Analgesia p.r.n. add po oxycodone ,wean iv dilaudid, continue IV zosyn for possible colitis. CIWA 1, hold phenobarb protocol. Follow CBC, electrolytes, Advanced diet to regular low-fat/clear ensure t.i.d. Acute hypokalemia K 3.0 will replete and follow labs. Acute hypo magnesemia repleted and normalized. Bright red blood per rectum with intermittent diarrhea Repeat hematocrit stable /no recurrent episodes of GI bleed Colonoscopy 2018 [facility] revealed tubular adenoma, denies further follow up with GI. Seen by PCP prior to admit who ordered colonoscopy GI panel and cdiff pcr un collected due to lack of diarrhea Seen by GI rec outpatient colonoscopy, due to Unintentional WL -20 lbs last 2 months, hold flex sigmoidoscopy due to worsening acute pancreatitis and stable hematocrit. Marked sinus bradycardia- stable/asymptomatic Heart rate improved to 60s, patient asymptomatic , EKG with chronic early repolarization changes. Seen by Cardiology no further workup warranted. Acute leukocytosis no sepsis, likely reactive versus due to colitis/pancreatitis continue IV Zosyn d2 transitioned to by mouth Augmentin upon discharge. Hypertensive urgency in setting of pain/withdrawal, not on antihypertensives at home , follow BP if remains elevated consider Norvasc. OUD: DC buprenorphine and resume buprenorphine once iv pain meds weaned, seen by Addiction Team patient declined medication for BLADIMIR at this time. Cigarette smoking Cessation encouraged, Declines replacement therapy DVT proph- SCPs given rectal bleeding Full code Pt requires continued inpt stay for management of acute alcohol withdrawal , acute pancreatitis,colitis and IV pain management. Quality Stroke Does the patient have a stroke diagnosis?: No VTE Prior VTE?: No VTE Risk Level:: Medical - moderate - high VTE Device Contraindication: N/A - Device Ordered VTE Drug Contraindication: Treatment Not Indicated
[2024-10-02] MEDS: Potassium Chloride ER 20 MEQ TAB.ER.PRT 40 MEQ PO (11:45)
[2024-10-02 11:49] VITALS: BP 171/103; PULSE 81; RESP 20; TEMP 36.7; O2SAT 99
[2024-10-02 14:55] LABS: Neutrophils Absolute Auto 16.8 x10*3/uL (2.0-8.3); White Blood Count 20.1 X10*3/uL (4.8-10.8)
[2024-10-02 15:03] LABS: Potassium 3.6 mmol/L (3.3-5.1)
--- NOTE | 2024-10-02 15:21 | P.PNADD_ITS ---
Subjective Subjective Date of Service: 10/02/24 Reason For Visit: acute alcoholic pancreatitis rectal bleeding nik Interim History: Patient seen in follow up for OUD Awake, alert, appearing more comfortable overall Scheduled to discharge today Discussed restarting buprenorphine. Patient feels comfortable restarting at home Has plenty of medication at home as well. No questions or concerns Review of Systems Gastrointestinal: Denies loose stools, Denies nausea and Denies vomiting Mental Status Exam Mental Status Exam Patient Appearance: Appropriate Level of Consciousness: Awake, Appropriate and Alert Affect Description: Calm Speech Pattern: Clear Diagnostics Vital Signs (24Hr): Vital Signs - 24 hr 10/01/24 15:27 10/01/24 19:23 10/01/24 23:49 Temperature 98.0 F 98.0 F 98.1 F Pulse Rate 96 91 99 Respiratory Rate 18 18 16 Blood Pressure 155/80 H 165/80 H 150/75 H Pulse Oximetry 96 97 97 Oxygen Delivery Method Room Air Room Air Room Air 10/02/24 03:10 10/02/24 07:32 10/02/24 11:49 Temperature 97.8 F 98.5 F 98.1 F Pulse Rate 112 H 108 H 81 Respiratory Rate 18 20 20 Blood Pressure 160/90 H 143/111 H 171/103 H Pulse Oximetry 98 97 99 Oxygen Delivery Method Room Air Room Air Room Air BMI result Body Mass Index 21.4 Labs 10/02/24 14:40 10/02/24 14:40 Labs: Laboratory Results - last 48 hr 10/01/24 10/02/24 10/02/24 06:52 06:36 14:40 WBC 23.8 H 23.0 H 20.1 H RBC 5.49 5.59 Hgb 15.7 15.7 Hct 45.9 46.3 MCV 83.6 82.8 MCH 28.6 28.1 MCHC 34.2 33.9 RDW 15.0 14.9 Plt Count 392 396 MPV 9.3 L 10.0 Absolute Neuts (auto) 16.8 H Absolute Nucleated RBC 0.000 0.000 Nucleated RBC % (auto) 0.0 0.0 Sodium 139 137 Potassium 3.2 L 3.0 L 3.6 Chloride 101 100 Carbon Dioxide 27 24 Anion Gap 14 16 BUN 6 L 11 Creatinine 0.60 0.61 Estim Creat Clear Calc 163.3 160.6 Estimated GFR > 60 > 60 Random Glucose 98 82 Calcium 9.4 9.3 Magnesium 1.6 2.0 Total Bilirubin 0.5 Direct Bilirubin 0.2 AST 21 ALT 9 Alkaline Phosphatase 112 Total Protein 6.8 Albumin 3.7 Lipase 432 H 112 H Imaging Radiology Impressions: ITS Impressions Abdomen/Pelvis CT 09/29/24 07:51 IMPRESSION: 1. Lung bases demonstrating innumerable tiny groundglass nodules bilaterally, with associated centrilobular emphysematous change, and small airway thickening/foci of endobronchial mucous plugging. Findings most likely represent endobronchial spread of infection and associated small airways infectious/inflammatory disease. If the patient is a smoker, consider smoking-related lung disease (respiratory bronchiolitis, RB/ILD). 2. There is a focus of arterial phase enhancement in the left inferior rectum just above the anal verge, most likely hemorrhoidal. No pooling on delayed phase. 3. There are 2 foci of arterial phase enhancement in the distal sigmoid and proximal rectum, possible angiodysplasia. No significant contrast pooling on delayed phase imaging. 4. Minimal fat stranding surrounding the head of the pancreas. Correlate for laboratory abnormalities of pancreatitis. Electronically signed by: Mike Gannon MD 09/29/2024 09:08 AM EDT RP Medications Medications Current Medications Acetaminophen (Acetaminophen 325 Mg Tablet) 650 mg PO Q6H PRN PRN Reason: Pain, Mild 1-3,fever,headache Last Admin: 10/02/24 08:43 Dose: 650 mg Al Hydroxide/Mg Hydroxide (Magnesium Hydrox/Alum Hydrox 30 Ml Oral.Susp) 30 ml PO Q6H PRN PRN Reason: heart burn Calcium Carbonate (Calcium Carbonate 750 Mg Tab.Chew) 750 mg PO Q4H PRN PRN Reason: Heartburn Folic Acid (Folic Acid 1 Mg Tablet) 1 mg PO DAILY [facility] Last Admin: 10/02/24 08:39 Dose: 1 mg Hydromorphone HCl (Hydromorphone Hcl 1 Mg/Ml Syringe) 1 mg IVPUSH Q3H PRN; Protocol PRN Reason: Pain, Severe (Pain Scale 7-10) Last Admin: 10/02/24 12:53 Dose: 1 mg Piperacillin Sod/Tazobactam (Sod 3.375 gm/ Sodium Chloride) 50 mls @ 100 mls/hr IV Q6H [facility] Last Admin: 10/02/24 15:10 Dose: Not Given Magnesium Hydroxide (Milk Of Magnesia 30 Ml Oral.Susp) 30 ml PO DAILY PRN PRN Reason: Constipation Melatonin (Melatonin 3 Mg Tablet) 6 mg PO BEDTIME PRN PRN Reason: Insomnia Omeprazole (Omeprazole 40 Mg Capsule.Dr) 40 mg PO DAILY@0630 [facility] Last Admin: 10/02/24 06:34 Dose: 40 mg Ondansetron HCl (Ondansetron Hcl 4 Mg/2 Ml Vial) 4 mg IVPUSH Q8H PRN PRN Reason: Nausea and Vomiting Last Admin: 10/02/24 08:38 Dose: 4 mg Oxycodone HCl (Oxycodone Hcl Immed Release 5 Mg Tablet) 10 mg PO Q6H PRN PRN Reason: Pain, Moderate(Pain Scale 4-6) Simethicone (Simethicone 80 Mg Tab.Chew) 80 mg PO QIDWMHS PRN PRN Reason: Gas Last Admin: 10/02/24 11:48 Dose: 80 mg Sodium Chloride (0.9 % Sodium Chloride Flush 3 Ml Syringe) 3 ml IVFLUSH QSHIFT [facility] Last Admin: 10/02/24 15:17 Dose: Not Given Thiamine HCl (Thiamine Hcl 100 Mg Tablet) 100 mg PO DAILY [facility] Last Admin: 10/02/24 08:39 Dose: 100 mg Allergies Allergies Allergy/AdvReac Type Severity Reaction Status Date / Time morphine [MORPHINE] Allergy Unknown PALPITATION Verified 09/29/24 07:28 S Assessment & Plan Assessment & Plan (1) Opioid use disorder, moderate, in sustained remission: Status: Acute Code(s): F11.21 - Opioid dependence, in remission Assessment and Plan: * restart suboxone later this evening * has a follow up appt with Dr. Lagunas scheduled * encouraged to call office prior to next appt should he need to be seen sooner Total time managing care of this patient today _20___ minutes.
--- NOTE | 2024-10-02 15:27 | PM.DS ---
DS: Providers Provider Date of Service: 10/02/24 Date of admission: 09/29/24 10:50 Date of discharge: 10/02/24 Primary care physician: Zachary Veloz MD Consults: 09/29/24 10:50 Consult to Gastroenterology Routine Consulting Provider: Estefania Mcgowan Reason for consultation: BRBPR, 20 lb WL 2 months 09/29/24 11:18 Addiction Medicine Provider Routine Consulting Provider: Addiction Covering Reason for consultation: AUD, OUD- suboxone w/ marked bradycardia 09/29/24 11:45 Consult to Cardiology Routine Consulting Provider: [facility] Reason for consultation: marked bradycardia 10/01/24 08:23 Inpt - Recovery Team Routine Comment: Reason for consultation: MERCEDEZ eval and resources DS: Diagnosis Discharge Diagnosis (1) Bradycardia: Status: Acute (2) Alcohol use disorder: Status: Acute (3) Pancreatitis: Status: Acute (4) Lower gastrointestinal hemorrhage: Status: Acute (5) Opioid use disorder, moderate, in sustained remission: Status: Acute DS: Summary Hospital Course Hospital Course: History of presenting illness. Date of Service: 09/29/24 Attending physician on admission: Rama Vicente Chief Complaint: abd pain, rectal bleeding 44-year-old male with history of opioid use disorder stable on Suboxone, lumbar radiculopathy with history of lumbar fusion, history of meralgia paresthetica, multiple pulmonary nodules, tubular adenoma of colon with history of rectal bleeding who currently smokes 1 pack of cigarettes on a daily basis and was working to quit presented to the ED earlier this morning accompanied by his mother and father due to rectal bleeding and abdominal pain ongoing for 4 days. He states that initially he was having stool with bright red blood, both normal stool and diarrhea, but this morning had large volume bright red blood in the absence of stool. He has also been experiencing 9/10 epigastric pain with associated nausea and vomiting which started in the last several days. He has also been experiencing anorexia for the last 2 months and has unintentionally lost about 20 lb. He feels this is related to dental infections and was recently seen by his dentist on 09/22 and prescribed a 7 day course of Augmentin which he completed. He does tell me that from Saturday to Saturday, he was on a fishing trip with his friends and consumed significant amounts of alcohol > 10 drinks per day. He denies any regular use though his dad does state that he may be downplaying his alcohol consumption. He denies any ongoing illicit drug abuse and denies any history of IV drug abuse. He denies any history of pancreatitis. He denies any personal or family history of colon cancer. No family or personal history of IBD. He is also reporting chills, anxiety, agitation, nausea, vomiting. No fevers, rigors, melena, hematochezia, dysuria, hematuria, shortness of breath, wheezing, palpitations, lightheadedness, chest pain. Not on blood thinners. In the ED, he has been markedly bradycardic with heart rates 30s-40s and hypertensive to 192/94. He denies any history of hypertension. There is a leukocytosis of 16.5. No anemia with H/H14.4/42.8% though do suspect some degree of hemoconcentration. Hepatic function within normal limits except for alk phos 126. LDH 161. Troponin undetectable. Lipase 323. Ethyl alcohol level undetectable. CT abdomen pelvis shows evidence of innumerable tiny ground-glass nodules bilaterally with associated centrilobular emphysematous change and small airway thickening/foci of endobronchial mucous plugging suggestive of endobronchial spread of infection associated small airways infectious/inflammatory disease consideration of smoking-related lung disease advised. There is probable hemorrhoid in the left inferior rectum just above the anal verge but no pooling or delayed phase bleeding. There also 2 foci of arterial phase enhancement in the distal sigmoid and proximal rectum suggestive of possible angiodysplasia. There is also minimal fat stranding surrounding the head of the pancreas. EKG shows marked bradycardia, rate 35, early repol, no AV kevin blocks In the ED has received 1 bolus of lactated Ringer's, lorazepam, a total of 2 mg hydromorphone, Zosyn, and ondansetron. Hx colonocopy [facility] 2019- Colonoscopy, flexible; with removal of tumor(s), polyp(s), or other lesion(s) by snare technique: 01/20/19 Hospital course: 44-year-old male with history of opioid use disorder stable on Suboxone, lumbar radiculopathy with history of lumbar fusion, history of meralgia paresthetica, multiple pulmonary nodules, tubular adenoma of colon with history of rectal bleeding who currently smokes 1 pack of cigarettes on a daily basis and was working to quit admitted to the med/tele for further management of acute alcoholic pancreatitis with bright red blood per rectum, and marked bradycardia. Acute alcoholic pancreatitis treated with bowel rest, IV fluids, IV analgesics, on admission Lipase 323, worsened to 1114,> 432 >112 noted to have normal LFTs, CT abdomen/pelvis 09/29 shows evidence of fat stranding around the head of the pancreas, repeat CT abdomen 10/01 showed small fluid and fat stranding surrounding pancreas concerning for acute interstitial edematous pancreatitis no evidence of necrosis, bowel thickening of the descending colon and sigmoid colon colitis can not be excluded, Triglycerides within normal limits. No evidence of biliary obstruction, normal calcium, subsequently abdominal pain improved, at present tolerating low-fat diet in regard to alcohol use disorder CIWA was for initially improved to 1 did not require phenobarb protocol patient has been strongly advised to completely abstain from alcohol. Acute hypokalemia repleted and normalized Acute hypo magnesemia repleted and normalized. Bright red blood per rectum with intermittent diarrhea Repeat hematocrit stable /no recurrent episodes of GI bleed, Colonoscopy 2018 [facility] revealed tubular adenoma, denies further follow up with GI. Seen by PCP prior to admit who ordered colonoscopy, GI panel and cdiff pcr un collected due to lack of diarrhea, Seen by GI rec outpatient colonoscopy, due to Unintentional WL -20 lbs last 2 months, hold flex sigmoidoscopy due to worsening acute pancreatitis and stable hematocrit. Marked sinus bradycardia- stable/asymptomatic Heart rate improved to 60s, EKG with chronic early repolarization changes, Seen by Cardiology no further workup warranted. 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 Elevated blood pressure likely in the setting of pain and withdrawal recommend outpatient BP monitoring. OUD: Resume buprenorphine as per Addiction Team recommendation Cigarette smoking Cessation encouraged. Time Attestation Discharge Coordination Time (in mins): 40 Quality: Safe Use of Opioids Does Pt have an Active Cancer Diagnosis on the Problem List?: No Quality: Stroke Does the patient have a stroke diagnosis?: No Physical Exam Vital Signs: Vital Signs: Last Vital Signs Temp 98.1 F 10/02/24 11:49 Pulse 81 10/02/24 11:49 Resp 20 10/02/24 11:49 BP 171/103 H 10/02/24 11:49 Pulse Ox 99 10/02/24 11:49 O2 Del Method Room Air 10/02/24 11:49 BMI result Body Mass Index 21.4 Const: Other: General awake alert x3, in no acute distress. Neck no JVD. CVS regular rate rhythm, Respiratory lungs clear to auscultation, no respiratory distress, no wheeze, no rhonchi. Gastrointestinal non tender, soft, no distention, bowel sounds audible, no guarding , no rigidity. Extremities no edema. Neuro non focal Skin no rash Appropriate affect DS: Data Data Completed and Pending Labs on day of discharge: Laboratory Results - last 24 hr 10/02/24 10/02/24 06:36 14:40 WBC 23.0 H 20.1 H RBC 5.59 Hgb 15.7 Hct 46.3 MCV 82.8 MCH 28.1 MCHC 33.9 RDW 14.9 Plt Count 396 MPV 10.0 Absolute Neuts (auto) 16.8 H Absolute Nucleated RBC 0.000 Nucleated RBC % (auto) 0.0 Sodium 137 Potassium 3.0 L 3.6 Chloride 100 Carbon Dioxide 24 Anion Gap 16 BUN 11 Creatinine 0.61 Estim Creat Clear Calc 160.6 Estimated GFR > 60 Random Glucose 82 Calcium 9.3 Magnesium 2.0 Lipase 112 H Preliminary micro results at discharge 09/29/24 08:18 Blood Culture - Preliminary Blood - Venous No growth after 48 hours. 09/29/24 08:10 Blood Culture - Preliminary Blood - Venous No growth after 48 hours. Discharge Plan Discharge Anticipated Discharge Date/Time: 10/02/24 15:22 Patient Disposition: Home, Self-Care Discharge Diagnosis: Acute alcoholic pancreatitis Acute leukocytosis Alcohol use disorder Bradycardia Referrals: Zachary Veloz MD [Primary Care Provider] - 1 Week Discharge Medications: Continued omeprazole 40 mg capsule,delayed release(DR/EC) 40 mg PO DAILY@0630 buprenorphine-naloxone 8-2 mg film 2 film sublingual DAILY Discharge Orders: Discharge Order (Routine); Ordered 10/02/24 Ordered By: Rama Vicente Diet: Low fat, low cholesterol Activity on Discharge: As tolerated Stand Alone Forms: Patient Portal Discharge page Print Language: Citizen Of [place] Care Plan Goals: Acute alcoholic pancreatitis resolved recommend complete abstinence from alcohol and low-fat diet Bright red blood per rectum resolved recommend outpatient colonoscopy Acute leukocytosis likely due to steroids Tobacco use disorder recommends cessation. Dental infection continue Augmentin 1 tablet twice daily as prescribed Health Concerns: Dental infection Weight loss recommend outpatient colonoscopy Plan of Treatment: Outpatient follow-up with primary care physician call for appointment Assessment: As above
[2024-10-02] MEDS: oxyCODONE HCl Immed Release 5 MG TABLET 10 MG PO (15:45)
[2024-10-02 15:46] VITALS: BP 145/90; PULSE 86; RESP 17; TEMP 37; O2SAT 97
== END 2024-10-02 16:09 | disposition home or self-care (01) | DRG 282 ==
LOC: HO.ED 09:19 → HO.EDOVER 11:00 → HO.IMC 15:36
PROVIDERS: Admitting Provider Physician Assistant; Emergency Provider Emergency Medicine; PCP Family Medicine; Visit Provider Hospitalist
DX: K85.20 Alcohol induced acute pancreatitis without necrosis or infection (principal); I16.0 Hypertensive urgency; E83.42 Hypomagnesemia; E87.6 Hypokalemia; F10.90 Alcohol use, unspecified, uncomplicated; R00.1 Bradycardia, unspecified; F11.20 Opioid dependence, uncomplicated; F17.210 Nicotine dependence, cigarettes, uncomplicated; K62.5 Hemorrhage of anus and rectum; Z71.6 Tobacco abuse counseling; Z98.1 Arthrodesis status; Z79.899 Other long term (current) drug therapy
CPT/HCPCS: 36415; 74177; 74178; 80048; 80053; 80076; 80307; 83605; 83615; 83690; 83735; 84132; 84478; 84484; 85014; 85018; 85025; 85027; 85048; 86850; 86900; 86901; 87040; 93005; 99285; J0360; J1171; J1200; J2060; J2270; J2405; J2543; J3475; J3480; J7120; Q9967; S9485

== ENCOUNTER → 2024-09-29 07:29 | Outpatient (BNV) | payer OTHER, SELFPAY | PROVIDERS: Emergency Provider Emergency Medicine; PCP Family Medicine; Visit Provider Radiology Diagnostic Radiology | DX: J43.2 Centrilobular emphysema (principal); R91.8 Other nonspecific abnormal finding of lung field | CPT/HCPCS: 74178 ==

== ENCOUNTER 2024-09-29 10:50 | Outpatient (BNV) | payer OTHER, SELFPAY | END 2024-10-01 10:47 | PROVIDERS: Admitting Provider Physician Assistant; Emergency Provider Emergency Medicine; PCP Family Medicine; Visit Provider Nuclear Medicine | DX: K85.90 Acute pancreatitis without necrosis or infection, unspecified (principal) | CPT/HCPCS: 74177 ==

== ENCOUNTER → 2024-09-29 10:50 | Outpatient (BNV) | payer OTHER, SELFPAY | PROVIDERS: Admitting Provider Physician Assistant; Emergency Provider Emergency Medicine; PCP Family Medicine; Visit Provider Physician Assistant | DX: R00.1 Bradycardia, unspecified (principal); F10.90 Alcohol use, unspecified, uncomplicated; K85.90 Acute pancreatitis without necrosis or infection, unspecified; K92.2 Gastrointestinal hemorrhage, unspecified; F11.21 Opioid dependence, in remission; F17.200 Nicotine dependence, unspecified, uncomplicated | CPT/HCPCS: 99223; 99233 ==

== ENCOUNTER → 2024-09-29 10:50 | Outpatient (BNV) | payer OTHER, SELFPAY | PROVIDERS: Admitting Provider Physician Assistant; Emergency Provider Emergency Medicine; PCP Family Medicine; Visit Provider Internal Medicine | DX: F10.90 Alcohol use, unspecified, uncomplicated (principal); K85.90 Acute pancreatitis without necrosis or infection, unspecified; K92.2 Gastrointestinal hemorrhage, unspecified; F17.200 Nicotine dependence, unspecified, uncomplicated | CPT/HCPCS: 99223 ==

== ENCOUNTER → 2024-09-29 10:50 | Outpatient (BNV) | payer OTHER, SELFPAY | PROVIDERS: Admitting Provider Physician Assistant; Emergency Provider Emergency Medicine; PCP Family Medicine; Visit Provider Internal Medicine Cardiovascular Disease | DX: R00.1 Bradycardia, unspecified (principal); F10.90 Alcohol use, unspecified, uncomplicated | CPT/HCPCS: 93010; 99223 ==

== ENCOUNTER → 2024-09-29 10:50 | Outpatient (BNV) | payer OTHER, SELFPAY | PROVIDERS: Admitting Provider Physician Assistant; Emergency Provider Emergency Medicine; PCP Family Medicine; Visit Provider Nurse Practitioner Psychiatric/Mental Health | DX: F11.21 Opioid dependence, in remission (principal) | CPT/HCPCS: 99231; 99232 ==

== ENCOUNTER 2024-11-25 16:01 | Outpatient (AMB) | payer OTHER, SELFPAY ==
--- OUTSIDE RECORDS SUMMARY | 2024-11-25 16:04 | XMS_ITS | Continuity of Care Document ---
Author Organization [facility] Address [address] [place] [address]- Care Team Providers Care Wedding Decorator Name Role Phone Magdiel MCGARRY, Zachary Pineda Primary Care Physician [phone] [id number] Date(s): 10/22/24 - 11/21/24 [facility] [address] [place] [address]- Encounter Type: Triage Allergies, Adverse Reactions, Alerts No Known Allergies Immunizations Given and Recorded Vaccine Date Status Refusal Reason tetanus/diphtheria/pertussis, acel(Tdap) 02/05/20 Recorded tetanus/diphtheria/pertussis, acel(Tdap) 1 02/03/19 Given Diphth-Tetanus Toxoids Adsorbed(oldterm) 2 10/22/06 Given 1Result Comment: [facility] [id number] 2Admin Note: vig Medications omeprazole 40 mg oral enteric coated capsule 1 capsule, By Mouth, Daily, # 30 capsule, 5 Refills, Maintenance, 10/23/24 5:06:00 AM EDT, [facility], 186, cm, 10/13/24 16:22:00 EDT, Height, 80, kg, 10/11/23 14:54:00 EDT, Dry Weight Start Date: 10/23/24 Status: Ordered Quantity: 30.0 Unit: capsule Repeat number: 1 Suboxone 8 mg-2 mg Sublingual Film TAKE 2 FILMS SUBLINGUALLY DAILY Start Date: 09/17/23 Status: Ordered Repeat number: 1 Problem List Condition Confirmation Course Effective Dates [...] pack or more)/day in last 30 days; Use: 1 pack per day; Other: 1ppd x 20y; entered on: 10/13/24 Sex Sex Representation Male (finding) Patient Care team information Care Team Personnel Name: Zachary Veloz MD Position: [facility] Physician - Primary Care Member Role: PCP Address: [address] [place] [address]- Telecom: Care Team Related Persons Name: JAKOB CARVALHO Name: JAROD CARVALHO Insurance Providers Guarantor name: [facility] Health Plan Information #: 1 Payer: [facility] Member Number: NA Policy Number: NA Group Number: NA
--- NOTE | 2024-11-25 16:24 | MHC.OFFVIS ---
Vital Signs 11/25/24 16:26 Pulse 104 H Pulse Source Pulse Oximeter Pulse Oximetry (%) 98 Intake Visit Reasons: MAT Allergies morphine (MORPHINE) Allergy (Unknown, Verified 11/25/24 16:26) PALPITATIONS HPI HPI MAT: Details: He has been doing well with no complaints. [facility] Medical History Multiple pulmonary nodules Alcohol use disorder Tubular adenoma Tobacco use disorder Opioid use disorder Surgical History History of lumbar fusion Social History Household Members Other:: children 3 Housing: House Do you presently have visiting nurse or other home services: No Alcohol intake: current Alcohol intake frequency: a few times a month Patient Tobacco Use Status: Current everyday Tobacco user Tobacco use type: Cigarette Cigarette Packs Per Day: 1 e-Cigarette/Vaping Use: Never Used Second Hand Smoke Exposure: Yes service: No Review of Systems Const All systems reviewed & are unremarkable except as noted in HPI and below Physical Exam Vital Signs: Last Vital Signs Pulse 104 H 11/25/24 16:26 Pulse Ox 98 11/25/24 16:26 Const General: cooperative Assessment & Plan Assessment & Plan (1) Opioid use disorder, moderate, in sustained remission: Comment: He is doing well Code(s): F11.21 - Opioid dependence, in remission Category: Medical Plan: Continue same medication See as scheduled. Medications: New buprenorphine-naloxone 8-2 mg (Suboxone) 1 film sublingual BID 60 ea 1RF 30 days Coding Level of Care Code Est Pt Level 3 (95490) Diagnoses Opioid use disorder, moderate, in sustained remission F11.21
[2024-11-25 16:26] VITALS: PULSE 104; O2SAT 98
== END 2024-11-25 16:48 | disposition home or self-care (01) ==
LOC: HO.HCC 16:02
PROVIDERS: PCP Family Medicine; Visit Provider Internal Medicine
DX: F11.21 Opioid dependence, in remission (principal)
CPT/HCPCS: 99213

== ENCOUNTER → 2024-11-25 16:01 | Outpatient (BNVA) | payer OTHER, SELFPAY | PROVIDERS: PCP Family Medicine; Visit Provider Internal Medicine ==

== ENCOUNTER 2025-03-08 15:19 | Outpatient (AMB) | payer OTHER, SELFPAY ==
--- NOTE | 2025-03-08 15:34 | MHC.OFFVIS ---
Vital Signs 03/08/25 15:36 Height 6 ft 1 in Weight 165 lb BMI 21.8 BP 138/78 Pulse 78 Pulse Oximetry (%) 96 Intake Visit Reasons: MAT Allergies morphine (MORPHINE) Allergy (Unknown, Verified 03/08/25 15:37) PALPITATIONS HPI Comments Details: History of Present Illness The patient is a 44-year-old male presenting with opioid use disorder. He is currently on a treatment regimen of Suboxone 8/2 bid. During his last month away, he managed to obtain the necessary treatment to maintain continuity. The patient is stable on the current Suboxone dosage and reports no cravings or constipation. He also denies the need for psychological counseling. He is actively engaged in personal activities, including home improvements. Review of Systems - General: Reports feeling well. - Gastrointestinal: Denies constipation. - Psychological: Denies cravings, denies the need for psychological counseling. Physical Exam - Vitals- Vital signs stable. Results Plan Patient was informed and verbally consented to the use of an ambient scribe for clinic note documentation during this visit. 1. Opioid use, unspecified, uncomplicated F11.90 The patient's opioid use disorder is being managed with Suboxone 8/2 BID. He will receive a one-month prescription with two refills. His current stability without cravings or constipation supports the continuation of the current regimen. Monitoring and follow-up are planned in three months. Discussion Notes We discussed the continued management of the patient's opioid use disorder with Suboxone. The treatment helps maintain his stability, and he has consented to the ongoing use of this medication. We also talked about the need to monitor for any side effects and ensure the treatment remains effective. The patient was informed of the follow-up schedule and understands the importance of maintaining the prescribed regimen. Medical Decision Making The decision to continue the current dosage of Suboxone is based on the patient's stability and lack of adverse effects. The treatment goal is to manage opioid use disorder effectively, maintaining abstinence and preventing cravings. The scheduled follow-up in three months will help assess the long-term efficacy and necessity for any adjustments. The plan reflects a careful balance of maintaining stability while ensuring compliance with the treatment regimen. Patient Instructions - Continue to take Suboxone 8/2 BID as prescribed. - Watch for any changes or side effects and report them. - Follow up with the clinic in three months. - Contact us sooner if any issues or concerns arise. PFSH Medical History Multiple pulmonary nodules Alcohol use disorder Tubular adenoma Tobacco use disorder Opioid use disorder Surgical History History of lumbar fusion Social History Household Members Other:: children 3 Housing: House Do you presently have visiting nurse or other home services: No Alcohol intake: current Alcohol intake frequency: a few times a month Patient Tobacco Use Status: Current everyday Tobacco user Tobacco use type: Cigarette Cigarette Packs Per Day: 1 e-Cigarette/Vaping Use: Never Used Second Hand Smoke Exposure: Yes service: No Physical Exam Vital Signs: Last Vital Signs Pulse 78 03/08/25 15:36 BP 138/78 03/08/25 15:36 Pulse Ox 96 03/08/25 15:36 BMI result Body Mass Index 21.8 Assessment & Plan Assessment & Plan (1) Opioid use disorder, moderate, in sustained remission: Comment: He is doing well Code(s): F11.21 - Opioid dependence, in remission Category: Medical Plan na Medications: New buprenorphine-naloxone 8-2 mg (Suboxone) 1 film sublingual BID 60 ea 2RF 30 days Coding Level of Care Code Est Pt Level 3 (06111) Diagnoses Opioid use disorder, moderate, in sustained remission F11.21
[2025-03-08 15:36] VITALS: BP 138/78; PULSE 78; O2SAT 96; BMI 21.8
== END 2025-03-08 15:55 | disposition home or self-care (01) ==
LOC: HO.HCC 15:19
PROVIDERS: PCP Family Medicine; Visit Provider Internal Medicine
DX: F11.21 Opioid dependence, in remission (principal)
CPT/HCPCS: 99213

== ENCOUNTER 2025-06-21 13:22 | Outpatient (AMB) | payer OTHER, SELFPAY ==
[2025-06-21 13:30] VITALS: PULSE 82; O2SAT 99; BMI 23.5
--- NOTE | 2025-06-21 13:30 | MHC.AM.SUB ---
Vital Signs 06/21/25 13:30 Height 6 ft 1 in Weight 178 lb BMI 23.5 Pulse 82 Pulse Source Pulse Oximeter Pulse Oximetry (%) 99 Oxygen Delivery Method Room Air Intake Visit Reasons: MAT Allergies morphine (MORPHINE) Allergy (Unknown, Verified 06/21/25 13:31) PALPITATIONS HPI Comments Details: History of Present Illness The patient is a 44 year old male presenting for follow-up of opioid use disorder. He reports running out of Suboxone over the holiday and subsequently feeling sick for one week, which prevented him from attending a visit. His standard medication regimen is Suboxone 8/2 mg taken twice daily. He located additional Suboxone and is now feeling better. The patient denies symptoms of depression or constipation. Results Review of Systems Narrative Review of Systems - Constitutional: Reports feeling sick for a week after running out of medication. - Psychiatric: Denies depression. - Gastrointestinal: Denies constipation. Physical Exam Exam Exam: Physical Exam - General: Vital signs stable. Vital Signs: Last Vital Signs Pulse 82 06/21/25 13:30 Pulse Ox 99 06/21/25 13:30 Oxygen Delivery Method Room Air 06/21/25 13:30 BMI result Body Mass Index 23.5 Results AMB 14 Panel Urine Drug Screen Urine Marijuana (THC) Negative Last Edit by Candido Perez CMA on 06/21/25 13:33 Urine Cocaine Negative Last Edit by Candido Perez CMA on 06/21/25 13:33 Urine Morphine Negative Last Edit by Candido Perez CMA on 06/21/25 13:33 Urine Methamphetamine Negative Last Edit by Candido Perez CMA on 06/21/25 13:33 Urine Amphetamine Negative Last Edit by Candido Perez CMA on 06/21/25 13:33 Urine Benzodiazepine Negative Last Edit by Candido Perez CMA on 06/21/25 13:33 Urine Barbiturates Negative Last Edit by Candido Perez CMA on 06/21/25 13:33 Urine Methadone Negative Last Edit by Candido Perez CMA on 06/21/25 13:33 Urine Buprenorphine Positive Last Edit by Candido Perez CMA on 06/21/25 13:33 Urine Tricyclic Antidepressant Negative Last Edit by Candido Perez CMA on 06/21/25 13:33 Urine MDMA Negative Last Edit by Candido Perez CMA on 06/21/25 13:33 Urine Oxycodone Negative Last Edit by Candido Perez CMA on 06/21/25 13:33 Urine Phencyclidine Negative Last Edit by Candido Perez CMA on 06/21/25 13:33 Urine Propoxyphene Negative Last Edit by Candido Perez CMA on 06/21/25 13:33 Results Reviewed Results Reviewed: Laboratory Last Values POC Urine Buprenorphine Positive 06/21/25 13:31 POC Urine Morphine Negative 06/21/25 13:31 POC Urine Oxycodone Negative 06/21/25 13:31 POC Urine Methadone Negative 06/21/25 13:31 POC Urine Propoxyphene Negative 06/21/25 13:31 POC Urine Barbiturates Negative 06/21/25 13:31 POC U Tricyclic Antidpr Negative 06/21/25 13:31 POC Urine PCP Negative 06/21/25 13:31 POC Ur Amphetamines Negative 06/21/25 13:31 POC Ur Methamphetamine Negative 06/21/25 13:31 POC Urine MDMA Negative 06/21/25 13:31 POC Ur Benzodiazepine Negative 06/21/25 13:31 POC Urine Cocaine Negative 06/21/25 13:31 POC Ur Marijuana (THC) Negative 06/21/25 13:31 PFSH Medical History Multiple pulmonary nodules Alcohol use disorder Tubular adenoma Tobacco use disorder Opioid use disorder Surgical History History of lumbar fusion Social History Household Members Other:: children 3 Housing: House Do you presently have visiting nurse or other home services: No Alcohol intake: current Alcohol intake frequency: a few times a month Patient Tobacco Use Status: Current everyday Tobacco user Tobacco use type: Cigarette Cigarette Packs Per Day: 1 e-Cigarette/Vaping Use: Never Used Second Hand Smoke Exposure: Yes service: No Assessment & Plan Assessment & Plan (1) Opioid use disorder, moderate, in sustained remission: Comment: He is doing well Code(s): F11.21 - Opioid dependence, in remission Category: Medical Plan Plan Patient was informed and verbally consented to the use of an ambient scribe for clinic note documentation during this visit. 1. Opioid use, unspecified, uncomplicated F11.90 The patient has a history of opioid use disorder, managed with Suboxone 8/2 mg twice daily. He experienced withdrawal symptoms after running out of his medication but is now stable after resuming it. A one-month supply of Suboxone 8/2 mg BID was refilled, with two additional refills. He will follow up in three months. Discussion Notes I have refilled the patient's Suboxone 8/2 mg to be taken twice daily, providing a one-month supply with two refills. I advised the patient to follow up in three months. Medical Decision Making The patient is a 44-year-old male with opioid use disorder, currently treated with Suboxone 8/2 mg BID. He reported a recent brief period of non-adherence after running out of his medication, which led to withdrawal symptoms. He has since resumed his medication, is feeling better, and has stable vital signs. Given his return to stability, the plan is to continue the current treatment regimen. A prescription for a one-month supply of Suboxone with two refills was provided to support continued adherence, with a follow-up scheduled in three months. Patient Instructions - Continue taking your Suboxone 8/2 mg medication twice a day as prescribed. - A new prescription for a 1-month supply with 2 refills has been sent to your pharmacy. - Please schedule a follow-up appointment in 3 months. Orders: Orders AMB 14 Panel Urine Drug Screen Today Z51.81 - Encounter for therapeutic drug level monitoring Fentanyl, urine Today F11.21 - Opioid dependence, in remission Medications: New buprenorphine-naloxone 8-2 mg (Suboxone) 1 film sublingual BID 60 ea 2RF 30 days
== END 2025-06-21 13:48 | disposition home or self-care (01) ==
PROVIDERS: PCP Family Medicine; Visit Provider Internal Medicine
DX: F11.21 Opioid dependence, in remission (principal); Z51.81 Encounter for therapeutic drug level monitoring
CPT/HCPCS: 99213

== ENCOUNTER 2025-06-21 13:22 | Outpatient (REF) | payer OTHER, SELFPAY | END 2025-06-21 13:23 | disposition home or self-care (01) | LOC: HO.LNP 13:22 | PROVIDERS: PCP Family Medicine; Visit Provider Internal Medicine | DX: F11.21 Opioid dependence, in remission (principal); Z51.81 Encounter for therapeutic drug level monitoring; Z79.899 Other long term (current) drug therapy | CPT/HCPCS: 80307 ==